=== PATIENT | male | born 1940 | race Caucasian/White ===

== ENCOUNTER 2021-02-27 10:59 | Day surgery (SDC) | payer MEDICARE ==
[2021-02-25 09:18] VITALS: BMI 28.3
[~2021-02-27 10:59] MED LIST: ALBUTEROL NEB (CONC) 2.5 MG/0.5 ML INHALATION ONE; ATROPINE SULFATE 0.4 MG/ML 1 ML VIAL IM ONE; LACTATED RINGERS 1,000 ML IV SCH; LIDOCAINE 2% (PF) 20 MG/ML 5 ML VIAL INHALATION ONE; LIDOCAINE VISCOUS 300 MG/15 ML CUP MUCOUS MEM ONE; SODIUM CHLORIDE 0.9% 1,000 ML IV SCH
--- NOTE | 2021-02-27 13:02 | CT ---
EXAMINATION TYPE: CT Chest dena Lopez Protocol DATE OF EXAM: 02/27/2021 COMPARISON: None HISTORY: Bronchial navigation CT DLP: 598 mGycm Automated exposure control for dose reduction was used. FINDINGS: Limited procedures prominent bronchial navigation procedure obtained. Spiculated mass left upper lobe measuring 1.1 cm. There is bilateral pleural-based thickening. Calcif ied subpleural nodule right lung apex. Measures 3 mm. Multiple additional sub-5 mm subpleural nodules are noted. No consolidative pneumonia. No pleural effusion. No pneumothorax. Larger 2.3 cm mass left upper lobe medial segment. No gross adenopathy by noncontrast limited technique. Tracings gynecomast ia noted. Dense atherosclerotic change of the aorta including the aortic valve. There is coronary artery calcif ication. Pericardial lipomatosis incidentally noted. Hypertrophic and degenerative change of the spin e. Incidental note made of a right thyroid nodule measuring 1.1 cm. IMPRESSION: SPICULATED NODULE MEASURING 1.1 CM LEFT UPPER LOBE. 2.4 CM LEFT UPPER LOBE MASS ALONG THE MEDIAL SVEN IN SUPRAHILAR REGION. NONSPECIFIC SUB-5 MM SUBPLEURAL NODULES DISCUSSED ABOVE. 1.1 cm right thyroid nodule
[2021-02-27] MEDS ORDERED: ROCURONIUM 10 MG/ML (5 ML VIAL) IV ONE (13:43)
[2021-02-27] MEDS ORDERED: PROPOFOL 10 MG/ML 20 ML VIAL IV ONE (13:43)
[2021-02-27] MEDS ORDERED: SUCCINYLCHOLINE CHLORIDE 100 MG/5 ML SYR IV ONE (13:43)
[2021-02-27] MEDS ORDERED: LIDOCAINE 1% INJ 10MG/ML (20 ML MDV) ONE (13:43)
[2021-02-27] MEDS ORDERED: MIDAZOLAM 2 MG/2 ML VIAL ONE (13:43)
[2021-02-27] MEDS ORDERED: NEOSTIGMINE 1 MG/ML 10 ML VIAL ONE (13:43)
[2021-02-27] MEDS ORDERED: GLYCOPYRROLATE 0.2 MG/ML 2 ML VIAL ONE (13:43)
[2021-02-27] MEDS ORDERED: fentaNYL (PF) 50 MCG/ML 2 ML AMP ONE (13:43)
[2021-02-27 14:39] VITALS: TEMP 98
[2021-02-27 14:51] VITALS: RESP 16
[2021-02-27 15:16] LABS: Appearance,BF Blood Tinged; Nucleated Cells, Body Fluid 80 /uL; RBC, Body Fluid 4840 /uL
--- NOTE | 2021-02-27 15:31 | XR ---
EXAMINATION TYPE: XR chest 1V DATE OF EXAM: 02/27/2021 HISTORY: post bronch with robby and bx left upper lobe COMPARISON: None. TECHNIQUE: Single view of the chest is submitted. FINDINGS: Demonstrated are scattered senescent parenchymal change. No evidence for a pneumothorax left lung. There is no evidence for focal infiltrate. Left suprahilar nodule identified. The heart is stable. Hilar and mediastinal structures are within normal limits. Degenerative changes are seen of the dorsal spine. IMPRESSION: 1. No evidence for a pneumothorax left lung.
[2021-02-27 15:38] LABS: Mononuclear WBC,Body Fluid 97 %; Polynuclear WBC,Body Fluid 2 %; Total Cells Counted,Body Fluid 100
[2021-02-27 16:05] VITALS: BP 137/76; PULSE 65
--- NOTE | 2021-02-27 21:03 | PCN ---
PROCEDURE NOTE PROCEDURE: Navigational bronchoscopy. OPERATORS: 1. Dr. Ramirez. 2. Dr. Shepard. There was informed consent and universal timeout. Anesthesia (Dr. Castrejon, I believe)provided general anesthesia to this patient. The procedure took place in room #1 endoscopy suite. PREOPERATIVE DIAGNOSIS: Lesion, left upper lobe. Rule out cancer. POSTOPERATIVE DIAGNOSIS: Lesion, left upper lobe. Rule out cancer. PROCEDURE DESCRIPTION: We did a navigational bronchoscopy to the left upper lobe. There was good localization. We did multiple biopsies, including transbronchial biopsies of left upper lobe and transbronchial needle aspiration to the left upper lobe. The patient tolerated those biopsies well and there was minimal bleeding. Next, we did brushes to the left upper lobe and washes to the left upper lobe as well. Again the patient tolerated this procedure well. Prior to doing any biopsies, we did a thorough evaluation of the lungs: the right upper lobe and its 3 segments, right middle lobe and its 2 segments, right lower lobe and its 5 segments, left upper lobe proper and its 2 segments, lingula and its 2 segments, and left lower lobe and its 4 segments. Everything was within normal range. There was no mass or tumor. The patient tolerated this procedure well. The patient will be recovered by Anesthesia. Once fully recovered, the patient will be discharged home. The specimens were sent to the laboratory for analysis. MMODL / IJN: [id number] /
== END 2021-02-27 16:35 | disposition home or self-care (01) ==
LOC: ORWHC2ENDO 10:59
PROVIDERS: ATTEND Internal Medicine Critical Care Medicine
DX: J98.4 Other disorders of lung (principal); R89.7 Abnormal histological findings in specimens from other organs, systems and tissues; R91.1 Solitary pulmonary nodule; Z97.2 Presence of dental prosthetic device (complete) (partial); I10 Essential (primary) hypertension; G47.33 Obstructive sleep apnea (adult) (pediatric); Z99.89 Dependence on other enabling machines and devices; M10.9 Gout, unspecified; K21.9 Gastro-esophageal reflux disease without esophagitis; Z79.899 Other long term (current) drug therapy; Z79.82 Long term (current) use of aspirin; R94.5 Abnormal results of liver function studies; E78.5 Hyperlipidemia, unspecified; R31.9 Hematuria, unspecified; E87.6 Hypokalemia
CPT/HCPCS: 31629; 87798 ×3; 87496; 87498; 87529; 88104; 88108; 88305; 88173; 89050; 88342; 87252; 87502; 87634; 88341; 87070; 87205; 87116; 87102; 87206; 71045; 71250; 31628; 31623; 31627; J2250; J0461; J2710; J2001; J3010; J0330; J2704; 31624

== ENCOUNTER → 2021-04-11 | Outpatient (CLI) | payer MEDICARE ==
[2021-04-11 16:23] LABS: Appearance,Urine Clear (Clear); Bilirubin,Urine Negative (Negative); Blood,Urine Negative (Negative); Color,Urine Yellow; Glucose,Urine (UA) Negative (Negative); Ketones,Urine Negative (Negative); Leukocyte Esterase,Urine Negative (Negative); Nitrite,Urine Negative (Negative); PH, Urine 6.5 (5.0-8.0); Protein,Urine Trace (Negative); Specific Gravity,Urine 1.015 (1.001-1.035); Urobilinogen,Urine <2.0 mg/dL (<2.0)
[2021-04-11 16:27] LABS: INR 0.9 (<1.2); Partial Thromboplastin Time 23.3 sec (22.0-30.0); Prothrombin Time 9.6 sec (9.0-12.0)
[2021-04-11 16:31] LABS: Potassium 3.6 mmol/L (3.5-5.1)
== END | disposition home or self-care (01) ==
LOC: LABPAT 15:36
PROVIDERS: ATTEND Thoracic Surgery (Cardiothoracic Vascular Surgery)
DX: Z01.812 Encounter for preprocedural laboratory examination (principal); C34.12 Malignant neoplasm of upper lobe, left bronchus or lung; I44.0 Atrioventricular block, first degree; R94.31 Abnormal electrocardiogram [ECG] [EKG]; I45.10 Unspecified right bundle-branch block; I45.2 Bifascicular block
CPT/HCPCS: 36415; 80051; 81003; 82565; 82947; 84520; 85610; 85730; 86850; 86900; 86901; 87086; 93005

== ENCOUNTER 2021-04-17 05:49 | Inpatient (IN) | payer MEDICARE ==
[2021-04-17] MEDS ORDERED: DEXAMETHASONE SOD PHOSPHATE 4 MG/ML 1 ML VIAL IV ONE (05:58)
[2021-04-17] MEDS ORDERED: MIDAZOLAM 2 MG/2 ML VIAL IV PRN (05:58)
[2021-04-17] MEDS ORDERED: ONDANSETRON 4 MG/2 ML VIAL IVP ONE (05:58)
[2021-04-17] MEDS ORDERED: HYDROmorphone 0.5 MG/0.5 ML SYRINGE IVP PRN (05:58)
[2021-04-17] MEDS ORDERED: LACTATED RINGERS 1,000 ML IV SCH (05:58)
[2021-04-17 06:56] LABS: Glucose,Whole Blood 108 mg/dL (75-99)
[2021-04-17] MEDS ORDERED: MIDAZOLAM 2 MG/2 ML VIAL IV ONE ×2 (07:03→07:15)
[2021-04-17] MEDS ORDERED: fentaNYL (PF) 50 MCG/ML 2 ML AMP IV ONE (07:03)
[2021-04-17] MEDS ORDERED: fentaNYL (PF) 50 MCG/ML 2 ML AMP ONE (07:16)
[2021-04-17] MEDS ORDERED: PHENYLEPHRINE-0.9% NACL SYG 1,000 MCG/10 ML SYRINGE ONE (07:16)
[2021-04-17] MEDS ORDERED: LIDOCAINE 1% INJ 10MG/ML (20 ML MDV) ONE (07:16)
[2021-04-17] MEDS ORDERED: GLYCOPYRROLATE 0.2 MG/ML 2 ML VIAL ONE (07:16)
[2021-04-17] MEDS ORDERED: SUCCINYLCHOLINE CHLORIDE 100 MG/5 ML SYR IV ONE (07:16)
[2021-04-17] MEDS ORDERED: ROPIVACAINE 5 MG/ML 30 ML VIAL ONE (07:16)
[2021-04-17] MEDS ORDERED: ePHEDrine SULFATE/0.9% NACL/PF 50 MG/5 ML SYRINGE IV ONE (07:16)
[2021-04-17] MEDS ORDERED: ROCURONIUM 10 MG/ML (5 ML VIAL) IV ONE (07:16)
[2021-04-17] MEDS ORDERED: PROPOFOL 10 MG/ML 20 ML VIAL IV ONE (07:16)
[2021-04-17] MEDS ORDERED: HYDROmorphone (PF) 1 MG/ML ONE (07:16)
[2021-04-17] MEDS ORDERED: NEOSTIGMINE 1 MG/ML 10 ML VIAL ONE (07:16)
[2021-04-17] MEDS ORDERED: SODIUM CHLORIDE 0.9% (PF) 10 ML VIAL ONE (07:16)
[2021-04-17 07:28] LABS: Basophils % (A) 1 %; Eosinophils # (A) 0.2 k/uL (0-0.7); Eosinophils % (A) 3 %; HCT 36.1 % (39.0-53.0); HGB 12.7 gm/dL (13.0-17.5); Lymphocytes # (A) 1.9 k/uL (1.0-4.8); Lymphocytes % (A) 33 %; MCH 32.2 pg (25.0-35.0); MCHC 35.2 g/dL (31.0-37.0); MCV 91.5 fL (80.0-100.0); Mean Platelet Volume 6.8; Monocytes # (A) 0.5 k/uL (0-1.0); Monocytes % (A) 9 %; Neutrophils % (A) 52 %; Platelet Count 194 k/uL (150-450); RBC 3.95 m/uL (4.30-5.90); RDW 13.9 % (11.5-15.5); WBC 5.8 k/uL (3.8-10.6)
[2021-04-17] MEDS ORDERED: BUPIVACAINE (PF) 0.5% 30 ML VIAL SQ ONE ×2 (08:25)
[2021-04-17] MEDS ORDERED: LACTATED RINGERS 1,000 ML IV ONE (08:53)
--- NOTE | 2021-04-17 11:32 | P.OP ---
Date of Procedure: 04/17/21 Preoperative Diagnosis: Well-differentiated neuroendocrine tumor left upper lobe Postoperative Diagnosis: Same Procedure(s) Performed: Left thoracoscopy, robotic-assisted left upper lobectomy with mediastinal lymph node dissection Implants: None Anesthesia: GREGA Surgeon: Francois Whiting Estimated Blood Loss (ml): 50 IV fluids (ml): 1,500 Urine output (ml): 300 Pathology: other (Left lower lobe; lymph node stations L5, L6, level 7, L8, L9, L 10, L 11) Condition: stable Disposition: PACU Indications for Procedure: 80-year-old male with newly discovered mass near the left hilum. Bronchoscopic biopsy was positive for well-differentiated neuroendocrine tumor. Resection was indicated. Lobectomy was required due to the location of the tumor. Robotic approach was planned. Operative Findings: Lung compliance was poor and the tissue was very soft. There was extensive anthracotic adenopathy in the hilum and mediastinum. The tumor was 2-3 cm present in the left upper lobe. Description of Procedure: Patient was brought to the operating room, placed supine on the operating room table. General anesthesia was induced and a double-lumen endotracheal tube was placed and positioned with fiberoptic bronchoscopy. No endobronchial lesions were noted. The tube was positioned and secured and the patient was turned in the right lateral decubitus position and appropriately positioned for robotic lobectomy. Left chest was sterilely prepped and draped. Initial incision was made in the eighth interspace in the anterior axillary line and the thoracoscope was placed. Once we confirmed presence of the pleural space CO2 insufflation was begun. Further robotic ports were placed and working port was placed. The fissures were incomplete. We began by dissecting the and mobilizing the inferior pulmonary ligament and continued our dissection posteriorly behind the inferior pulmonary vein. L9 and L8 lymph nodes were resected. Dissection was c arried onto the mainstem bronchus and the L 10 and 7 lymph nodes were resected. Dissection was carried up onto the pulmonary artery and the posterior branch to the posterior segment was mobilized and divided. Lymph nodes near the bifurcation of the left mainstem bronchus posteriorly were resected and sent as L 11 lymph nodes. Dissection was now carried anteriorly and the pleura resected up to the superior portion of the hilum. Superior pulmonary vein was mobilized and ligated and divided with robotic stapler. Excellent was carried onto the mainstem bronchus and the upper lobe bronchus was dissected out. Further L 11 lymph nodes were resected. The bronchus was ligated and divided with robotic stapler. Dissection was now carried onto the pulmonary artery. Regular branch of the pulmonary artery was mobilized ligated and divided with the robotic stapler. The fissure was now completed between the lingula and the lower lobe anteriorly with multiple firings of the robotic stapler. Dissection was carried onto the superior portion of the pulmonary artery and brought up on the truncus anteriorwas mobilized ligated and divided with a robotic stapler. As we dissected we discovered 2 more small branches of the pulmonary artery leading to the upper lobe and these were ligated and divided with 2 more firings of a robotic vascular stapler. Further L 11 lymph nodes were mobilized. We now completed the fissure posteriorly with multiple firings of the robotic stapler. We now dissected the L5 and 6 lymph nodes. Lobectomy specimen was placed in an Endo Catch bag. The robot was undocked and the working port incision was enlarged and the specimen was removed and examined on the back table. The chest was now filled with warm water and the hilum and staple lines were noted to be intact. There were several small punctures in the lower lobe from because the lung tissue was extremely poor and noncompliant. These were left alone. 28- Tamazight chest tube was positioned posterior apically and brought out through the anteriormost incisions. The lung was inflated under thoracoscopic visualization. Incisions were then closed with layers of Vicryl suture. They were then sealed with skin glue and dry sterile dressings were applied. The chest tube had been secured with an 0 Ethibond suture and was connected to a Pleur-evac. Patient was extubated and transferred to recovery in stable condition. Blood loss for the case was less than 50 mL.
--- NOTE | 2021-04-17 11:58 | XR ---
EXAMINATION TYPE: XR chest 1V portable DATE OF EXAM: 04/17/2021 CLINICAL HISTORY: Post left upper lobectomy. TECHNIQUE: Single AP portable upright view of the chest is obtained. COMPARISON: Chest x-ray from February 27, 2021 FINDINGS: Background chronic emphysematous and pulmonary fibrotic changes along with low lung volume s. New left-sided chest tube. Left upper lung pleural air collection with mild adjacent subcutaneous emphysema measured near 30-35%. No mediastinal shift. Left hilar opacity suspected atelectatic lung. Cardiac silhouette size stable and upper limits of normal with atherosclerotic aorta. Osseous structu res are intact. IMPRESSION: New left upper lung pleural air collection presumed product of partial pneumonectomy. No mediastinal shift. Left-sided chest tube. Left central atelectatic change. Background low lung volume s and chronic emphysematous and pulmonary fibrotic changes.
--- NOTE | 2021-04-17 13:46 | XR ---
EXAMINATION TYPE: XR chest 1V portable DATE OF EXAM: 04/17/2021 CLINICAL HISTORY: Pneumothorax progress study. TECHNIQUE: Single AP portable upright view of the chest is obtained. COMPARISON: Chest x-ray from earlier today an older studies FINDINGS: Persistent moderate-sized left upper lung pleural air collection or pneumothorax after lef t-sided partial pneumonectomy. Persistent left apical chest tube. Persistent left-sided volume loss w ith tracheal shift. Background chronic emphysematous and pulmonary fibrotic change along with low caty g volumes redemonstrated. Cardiac silhouette size stable and upper limits of normal. Atherosclerotic thoracic aorta. Left hilar opacity redemonstrated. Osseous structures are intact. IMPRESSION: Overall stable findings, moderate left apical pleural air collection or pneumothorax af ter partial pneumonectomy with left-sided chest tube.
[2021-04-17] MEDS ORDERED: IPRATROPIUM-ALBUTEROL 3 ML NEB IH PRN (13:59)
[2021-04-17] MEDS ORDERED: ONDANSETRON 4 MG/2 ML VIAL IVP PRN (13:59)
[2021-04-17] MEDS ORDERED: DEXTROSE 5%-0.45% NACL 1,000 ML IV SCH (13:59)
[2021-04-17] MEDS ORDERED: ACETAMINOPHEN TAB 325 MG TAB PO PRN (13:59)
--- NOTE | 2021-04-17 14:53 | P.CNPUL ---
History of Present Illness Consult date: 04/17/21 Reason for consult: other Chief complaint: Left upper lobe nodule, status post left thoracoscopy and lobectomy History of present illness: 80-year-old white male patient with a past medical history hypertension, hyperlipidemia, aortic valve stenosis, obstructive sleep apnea, BPH, anxiety, previous history of malignant melanoma, who was referred to Dr. Ramirez for evaluation of a left mid lung nodule/tumor. Patient was recently in the hospital for dehydration and weakness. Computed tomography scan of the chest showed a lesion in the left mid lung measuring 2.2 cm. Patient had outpatient PET scan that showed a positive uptake in this lesion but no evidence of metastatic disease. Patient carries a 24-volt-iiur smoking history. He quit smoking at the age of 53. Patient has been electromagnetic navigational br onchoscopy and biopsy of the left upper lobe lesion on 02/27/2021 and the pathology was positive for well-differentiated neuroendocrine carcinoma. He had a PFT in the office that showed FEV1 of 2.64 L or 82% of predicted, an FVC of 3.78 L or 84% of predicted, and MVV 64% of predicted. Patient was referred to Dr. Whiting for excisional surgery of the left upper lobe. Today on 04/17/2021 patient had left thoracoscopy robotic-assisted left upper lobectomy with mediastinal lymph node dissection. He seen in the postoperative period in the recovery room, he is resting comfortably on the gurney, he is still a bit drowsy, but he is answering questions appropriately, he is currently on a simple face mask, and only 2 L of oxygen, his pulse ox is 98%, he is breathing comfortably, he is in sinus mechanism, hemodynamically he stable, left-sided chest tube is in place to wall suction and there is a continuous air leak, postoperative chest x-ray has been reviewed showing new left upper lung pleural air collection, no mediastinal shift, left-sided chest tube in place, left central atelectatic change, back on the low lung volumes and chronic emphysematous and pulmonary fibrotic changes. Review of Systems All systems: negative Constitutional: Denies chills, Denies fever Eyes: denies blurred vision, denies pain Ears, nose, mouth and throat: Denies headache, Denies sore throat Cardiovascular: Denies chest pain, Denies shortness of breath Respiratory: Reports dyspnea, Denies cough Gastrointestinal: Denies abdominal pain, Denies diarrhea, Denies nausea, Denies vomiting Musculoskeletal: Denies myalgias Integumentary: Denies pruritus, Denies rash Neurological: Denies numbness, Denies weakness Psychiatric: Denies anxiety, Denies depression Endocrine: Denies fatigue, Denies weight change Past Medical History Past Medical History: GERD/Reflux, Hyperlipidemia, Hypertension, Sleep Apnea/CPAP/BIPAP Additional Past Medical History / Comment(s): HX GOUT, USES C-PAP MACHINE., STATES RECENT HOSPITALIZATION FOR WEAKNESS/DEHYDRATION AT [facility] - STATES CT SCAN SHOWED SPOT ON LEFT LUNG AND THYROID (HAD THYROID BX). HAD [employer] COVCoshared VACCINE. History of Any Multi-Drug Resistant Organisms: None Reported Past Surgical History: Bowel Resection Additional Past Surgical History / Comment(s): BRONCHOSCOPY. THYROID BX. STATES POLYP BETWEEN SMALL INTESTINE AND COLON-8 INCHES OF COLON REMOVED (PRECANCEROUS). Past Anesthesia/Blood Transfusion Reactions: No Reported Reaction Past Psychological History: Anxiety Smoking Status: Former smoker Past Alcohol Use History: Daily Additional Past Alcohol Use History / Comment(s): QUIT SMOKING 25 YEARS AGO (APPROX 1995), SMOKED <PPD. , STARTED SMOKING AGE 14. DRINKS 2-3 BEERS/DAY Past Drug Use History: None Reported - Past Family History Mother Family Medical History: No Reported History Medications and Allergies Home Medications Medication Instructions Recorded Confirmed Type Allopurinol [Zyloprim] 100 mg PO HS 02/25/21 04/11/21 History Aspirin 325 mg PO DAILY 02/25/21 04/11/21 History Atenolol [Tenormin] 50 mg PO QAM 02/25/21 04/11/21 History Losartan/Hydrochlorothiazide 1 tab PO QAM 02/25/21 04/11/21 History [Losartan-Hctz 100-12.5 mg Tab] Multivitamins, Thera [Multivitamin 1 tab PO DAILY 02/25/21 04/11/21 History (formulary)] Omeprazole 20 mg PO QAM 02/25/21 04/11/21 History Rosuvastatin [Crestor] 20 mg PO HS 02/25/21 04/11/21 History Vit C/E/Zn/Coppr/Lutein/Zeaxan 1 each PO BID 02/25/21 04/11/21 History [Preservision Areds 2 Softgel] amLODIPine BESYLATE 10 mg PO QAM 02/25/21 04/11/21 History Citalopram Hydrobromide 20 mg PO QAM 04/11/21 04/11/21 History [Citalopram HBr] Cyclobenzaprine [Flexeril] 10 mg PO QAM 04/11/21 04/11/21 History Rawlings-3 Fatty Acids/Fish Oil [Fish 1 cap PO DAILY 04/11/21 04/11/21 History Oil 1,000 mg Softgel] Potassium Chloride 10 meq PO QAM 04/11/21 04/11/21 History guanFACINE HCL [guanFACINE HCL ER] 2 mg PO HS 04/11/21 04/11/21 History Allergies Allergy/AdvReac Type Severity Reaction Status Date / Time No Known Allergies Allergy Verified 04/11/21 11:34 Physical Exam Vitals: Vital Signs Temp Pulse Pulse Resp BP BP BP 04/17/21 14:00 83 16 156/75 04/17/21 13:30 81 16 153/70 04/17/21 13:15 81 16 145/67 04/17/21 13:00 80 16 144/70 04/17/21 12:30 75 16 152/68 04/17/21 12:15 75 16 153/73 04/17/21 11:58 75 16 153/73 194/69 04/17/21 11:43 75 16 146/72 196/66 04/17/21 11:28 97.2 F L 79 100 H 150/53 180/83 04/17/21 06:39 97.2 F L 69 20 180/81 Pulse Ox 04/17/21 14:00 99 04/17/21 13:30 98 04/17/21 13:15 98 04/17/21 13:00 98 04/17/21 12:30 99 04/17/21 12:15 100 04/17/21 11:58 100 04/17/21 11:43 100 04/17/21 11:28 100 04/17/21 06:39 99 Intake and Output 04/16/21 04/17/21 04/17/21 22:59 06:59 14:59 Intake Total 300 1500 Output Total 955 Balance 300 545 Intake: IV 300 1500 Output: Urine 750 Pleural Fluid 170 Estimated Blood Loss 35 Other: Weight 94.7 kg GENERAL EXAM: Drowsy, but appropriate, easily arousable 80-year-old white male, on simple face mask, at 2 L with pulse ox of 98% comfortable in no apparent distress. HEAD: Normocephalic/atraumatic. EYES: Normal reaction of pupils, equal size. Conjunctiva pink, sclera white. NOSE: Clear with pink turbinates. THROAT: No erythema or exudates. NECK: No masses, no JVD, no thyroid enlargement, no adenopathy. CHEST: No chest wall deformity. Symmetrical expansion. Left lateral chest tube in place to wall suction, and continuous air leak, left lateral incision covered with a surgical dressing LUNGS: Equal air entry with no crackles, wheeze, rhonchi or dullness. CVS: Regular rate and rhythm, normal S1 and S2, no gallops, no murmurs, no rubs ABDOMEN: Soft, nontender. No hepatosplenomegaly, normal bowel sounds, no guarding or rigidity. EXTREMITIES: No clubbing, no edema, no cyanosis, 2+ pulses and upper and lower extremities. MUSCULOSKELETAL: Muscle strength and tone normal. SPINE: No scoliosis or deformity SKIN: No rashes CENTRAL NERVOUS SYSTEM: Alert and oriented -3. No focal deficits, tone is normal in all 4 extremities. PSYCHIATRIC: Alert and oriented -3. Appropriate affect. Intact judgment and insight. Results - Laboratory Findings CBC and BMP: 04/17/21 06:56 Abnormal lab findings: Abnormal Labs 04/17/21 04/17/21 06:38 06:56 RBC 3.95 L Hgb 12.7 L Hct 36.1 L POC Glucose (mg/dL) 108 H - Diagnostic Findings Chest x-ray: report reviewed, image reviewed Assessment and Plan Plan: Assessment: #1. Well-differentiated neuroendocrine tumor of the left upper lobe, status post left thoracoscopy and robotic-assisted left upper lobectomy and mediastinal lymph node node dissection, postoperative day #0 #2. History of hypertension #3. Patient is a former smoker, carries a [id number] smoking history, in remission for the last 20 years #4. History of hypercholesterolemia #5. GERD/reflux #6. History of obstructive sleep apnea on CPAP #7. Osteoarthritis Plan: Postoperative chest x-rays have been reviewed, and is a left apical pneumothorax, patient has a left-sided chest tube in place Patient has been evaluated along with Dr. Jain Left-sided chest tube is in place, and there is a continuous air leak, continue wall suction Follow-up chest x-ray in the morning Incentive spirometer to the bedside Antibiotics, GI and DVT prophylaxis per CT surgery Pain control Continue breathing treatments We'll continue to follow along with the CT surgery I performed a history & physical examination of the patient and discussed their management with my nurse practitioner, Jacquie Serna. I reviewed the nurse practitioner's note and agree with the documented findings and plan of care. Lung sounds are positive for diminished breath sounds. The findings and the impression was discussed with the patient. I attest to the documentation by the nurse practitioner. Time with Patient: Greater than 30
[2021-04-17] MEDS: IPRATROPIUM-ALBUTEROL 3 ML NEB IH SCH ×3 (15:05→20:20)
--- NOTE | 2021-04-17 15:22 | P.ANPRN ---
Procedure Note - Anesthesia - Nerve Block Performed Left Erector Spinae Single Time Out Performed: Yes ([id number]) Date of Procedure: 04/17/21 Procedure Start Time: 07:03 Procedure Stop Time: 07:06 Location of Patient: PreOp Indication: Acute Post-Operative Pain, Requested by Surgeon Specifically requested for management of pain by DrGuero: Francois Whiting Sedation Type: Sedate with meaningful contact maintained Preparation: Sterile Prep Position: Prone Catheter: None Needle Types: Pajunk Needle Gauge: 21 Ultrasound used to visualize needle placement: Yes Ultrasound used to observe medication spread: Yes Injectate: 0.5% Ropivacaine (see comment for volume) (30cc) Blood Aspirated: No Pain Paresthesia on Injection Noted: No Resistance on Injection: Normal Image Stored and Saved: Yes Events: Uneventful and Well Tolerated
[2021-04-17] MEDS: HEPARIN SODIUM,PORCINE/PF 5,000 UNIT/0.5 ML SYRINGE SQ SCH ×2 (15:24→22:15)
[2021-04-17] MEDS: KETOROLAC 15 MG/ML 1 ML VIAL IVP SCH ×3 (15:25→22:15)
[2021-04-17] MEDS: traMADol 50 MG TAB PO SCH ×3 (15:26→22:16)
[2021-04-17] MEDS: allopurinoL 100 MG TAB PO SCH (20:09)
[2021-04-17] MEDS: VIT A,C & E-LUTEIN-MINERALS 1 EACH TAB PO SCH (20:09)
[2021-04-17] MEDS: ATORVASTATIN 40 MG TAB PO SCH (20:09)
[2021-04-17] MEDS ORDERED: GUANFACINE HCL 2 MG PO SCH (21:00)
[2021-04-18] MEDS: PANTOPRAZOLE 40 MG TABLET PO SCH (05:24)
[2021-04-18] MEDS: KETOROLAC 15 MG/ML 1 ML VIAL IVP SCH ×4 (05:24→23:42)
[2021-04-18] MEDS: traMADol 50 MG TAB PO SCH ×4 (05:24→23:40)
--- NOTE | 2021-04-18 07:42 | XR ---
EXAMINATION TYPE: XR chest 1V DATE OF EXAM: 04/18/2021 CLINICAL HISTORY: Pneumothorax progress study. TECHNIQUE: Single AP portable upright view of the chest is obtained. COMPARISON: Chest x-ray from 04/17/2021 FINDINGS: Low lung volumes. Persistent moderate left upper lung pneumothorax after left partial pneum onectomy, similar to slightly decreased. Persistent left apical chest tube. Background chronic emphys ematous and pulmonary fibrosis along with low lung volumes. Heart size is mildly enlarged, stable. At herosclerotic thoracic aorta. Left hilar opacity again visualized. Osseous structures are intact. IMPRESSION: 1. Moderate left upper lung pneumothorax after left partial pneumonectomy is similar to slightly decr eased since prior exam. Left apical chest tube is again visualized.
[2021-04-18 07:54] LABS: Calcium 8.7 mg/dL (8.4-10.2)
[2021-04-18 07:56] LABS: Basophils % (A) 0 %; Eosinophils % (A) 0 %; HCT 37.9 % (39.0-53.0); HGB 12.2 gm/dL (13.0-17.5); Lymphocytes # (A) 1.2 k/uL (1.0-4.8); Lymphocytes % (A) 15 %; MCH 30.7 pg (25.0-35.0); MCHC 32.3 g/dL (31.0-37.0); Mean Platelet Volume 6.8; Monocytes # (A) 0.4 k/uL (0-1.0); Monocytes % (A) 5 %; Neutrophils # (A) 6.2 k/uL (1.3-7.7); Neutrophils % (A) 80 %; Platelet Count 188 k/uL (150-450); RBC 3.99 m/uL (4.30-5.90); RDW 14.5 % (11.5-15.5); WBC 7.8 k/uL (3.8-10.6)
[2021-04-18 08:00] LABS: Potassium 2.7 mmol/L (3.5-5.1)
[2021-04-18] MEDS: amLODIPine 10 MG TAB PO SCH (08:33)
[2021-04-18] MEDS: POTASSIUM CHLORIDE ER 20 MEQ TAB.ER PO SCH ×2 (08:33→20:29)
[2021-04-18] MEDS: CITALOPRAM HYDROBROMIDE 20 MG TAB PO SCH (08:33)
[2021-04-18] MEDS: atenoloL 50 MG TAB PO SCH (08:33)
[2021-04-18] MEDS: HEPARIN SODIUM,PORCINE/PF 5,000 UNIT/0.5 ML SYRINGE SQ SCH ×3 (08:33→23:41)
[2021-04-18] MEDS: MULTIVITAMINS, THERA 1 EACH TAB PO SCH (08:34)
[2021-04-18] MEDS: CYCLOBENZAPRINE 10 MG TAB PO SCH (08:34)
[2021-04-18] MEDS: LOSARTAN 50 MG TAB PO SCH (08:34)
[2021-04-18] MEDS: hydroCHLOROthiazide 12.5 MG CAP PO SCH (08:34)
[2021-04-18] MEDS: ASPIRIN 325 MG TAB PO SCH (08:34)
[2021-04-18] MEDS: VIT A,C & E-LUTEIN-MINERALS 1 EACH TAB PO SCH ×2 (08:35→20:29)
[2021-04-18] MEDS: IPRATROPIUM-ALBUTEROL 3 ML NEB IH SCH ×4 (08:52→20:00)
[2021-04-18] MEDS ORDERED: POTASSIUM CHLORIDE ER 10 MEQ TAB.ER.PRT PO SCH (09:00)
[2021-04-18] MEDS ORDERED: NON FORMULARY DRUG (Losartan/Hydrochlorothiazide [Losartan-Hctz 100-12.5 Mg Tab] 1 EACH Ta PO SCH (09:00)
[2021-04-18] MEDS: ACETYLCYSTEINE 800 MG/4 ML VIAL INHALATION SCH ×3 (11:48→20:01)
--- NOTE | 2021-04-18 13:29 | P.PN ---
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 Previous medical history of previous tobacco dependence, obstructive sleep apnea on home CPAP, hypertension, hyperlipidemia, GERD, osteoarthritis POD #1 left thoracoscopy, robotic-assisted left upper lobectomy with mediastinal lymph node dissection The patient is currently sitting up in a recliner in the cardiac stepdown unit in no acute distress. States pain is well controlled on current medication regimen, denies shortness of breath. Remains in sinus rhythm and hemodynamically stable. Left pleural chest tube present to continuous wall suction, continuous air leak present. Patient is actively using incentive spirometer and achieving 1000 mL. He had a relatively uneventful night and has no new complaints. Objective - Vital Signs Vital signs: Vital Signs Temp 97.8 F 04/18/21 12:35 Pulse 88 04/18/21 12:35 Resp 18 04/18/21 12:35 BP 129/95 04/18/21 12:35 Pulse Ox 95 04/18/21 12:35 Intake & Output 04/17/21 04/18/21 04/18/21 18:59 06:59 18:59 Intake Total 1500 600 354 Output Total 955 1900 Balance 545 -1300 354 Weight 93.2 kg Intake: IV 1500 Intake, IV Titration 600 Amount Dextrose 5%-0.45% NaCl 1, 450 000 ml @ 50 mls/hr IV . Q20H [facility] Rx#:[id number] ceFAZolin 2 gm In Sodium 100 Chloride 0.9% 50 ml @ 100 mls/hr IVPB ONCE PRN Rx# :[id number] ceFAZolin 2 gm In Sodium 50 Chloride 0.9% 50 ml @ 100 mls/hr IVPB Q8HR [facility] Rx# :[id number] Oral 354 Output: Chest Tube Drainage 500 Chest Tube Left Upper 500 Anterior Chest Drainage 200 Chest 200 Urine 750 1200 Uretheral (Mejia) 300 Pleural Fluid 170 Estimated Blood Loss 35 Other: Voiding Method Indwelling Catheter Indwelling Catheter Toilet - Exam CONSTITUTIONAL: Appears comfortable, cooperative, no acute distress RESPIRATORY: Lungs sounds diminished bilaterally. Respirations even, nonlabored. Currently on room air with oxygen saturation 95%. Able to achieve 1000 mL on incentive spirometry. Strong cough. CARDIOVASCULAR: S1, S2 present. Regular rate and rhythm, sinus rhythm on telemetry. Palpable peripheral pulses bilaterally. No edema present. No calf pain or tenderness noted. SCDs present. GASTROINTESTINAL: Abdomen soft, nontender, nondistended. Active bowel sounds present 4 quadrants. Tolerating diet. GENITOURINARY: Continues to void clear, yellow urine INTEGUMENTARY: Skin is warm and dry with evidence of good perfusion. Thoracic incisions well approximated and covered with dry intact dressing. NEUROLOGIC: Cranial nerves II through XII intact MUSKULOSKELETAL: Able to move all extremities, strength equal bilaterally, gait normal PSYCHIATRIC: Alert and oriented to person place and time, appropriate affect, intact judgment and insight INVASIVE LINES AND TUBES: Left pleural chest tube present and connected to wall suction, continuous air leak present, 375 mL serosanguineous drainage overnight, 1030 mL since surgery. - Allied health notes Allied health notes reviewed: nursing - Labs CBC & Chem 7: 04/18/21 06:55 04/18/21 06:55 Labs: Abnormal Lab Results - Last 24 Hours (Table) 04/18/21 04/18/21 Range/Units 06:55 06:55 RBC 3.99 L (4.30-5.90) m/uL Hgb 12.2 L (13.0-17.5) gm/dL Hct 37.9 L (39.0-53.0) % Potassium 2.7 L* (3.5-5.1) mmol/L Chloride 96 L (98-107) mmol/L Carbon Dioxide 34 H (22-30) mmol/L Glucose 117 H (74-99) mg/dL - Imaging and Cardiology Chest x-ray: report reviewed, image reviewed Assessment and Plan Assessment: 1. 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 Continuous air leak 3. Previous tobacco dependence 4. Obstructive sleep apnea on home CPAP 5. Hypertension 6. Hyperlipidemia 7. GERD 8. Osteoarthritis Plan: 1. Will continue to monitor chest tube for resolution of air leak 2. Encourage incentive spirometry 10 times every hour while awake 3. Bronchodilators per pulmonology 4. Will monitor daily x-rays 5. Pain control with current medication regimen 6. Increase activity, ambulate as tolerated. May take off suction for short. The time for induration in the hallway 7. GI/DVT prophylaxis 8. More recommendations to follow Time with Patient: Greater than 30
--- NOTE | 2021-04-18 14:10 | P.PN ---
Subjective Progress Note Date: 04/18/21 80-year-old white male patient with a past medical history hypertension, hyperl ipidemia, aortic valve stenosis, obstructive sleep apnea, BPH, anxiety, previous history of malignant melanoma, who was referred to Dr. Ramirez for evaluation of a left mid lung nodule/tumor. Patient was recently in the hospital for dehydration and weakness. Computed tomography scan of the chest showed a lesion in the left mid lung measuring 2.2 cm. Patient had outpatient PET scan that showed a positive uptake in this lesion but no evidence of metastatic disease. Patient carries a 60-[id number]-fxrm smoking history. He quit smoking at the age of 53. 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 He had a PFT in the office that showed FEV1 of 2.64 L or 82% of predicted, an FVC of 3.78 L or 84% of predicted, and MVV 64% of predicted. Patient was referred to Dr. Whiting for excisional surgery of the left upper lobe. Today on 04/17/2021 patient had left thoracoscopy robotic-assisted left upper lobectomy with mediastinal lymph node dissection. He seen in the postoperative period in the recovery room, he is resting comfortably on the gurney, he is still a bit drowsy, but he is answering questions appropriately, he is currently on a simple face mask, and only 2 L of oxygen, his pulse ox is 98%, he is breathing comfortably, he is in sinus mechanism, hemodynamically he stable, left-sided chest tube is in place to wall suction and there is a continuous air leak, postoperative chest x-ray has been reviewed showing new left upper lung pleural air collection, no mediastinal shift, left-sided chest tube in place, left central atelectatic change, back on the low lung volumes and chronic emphysematous and pulmonary fibrotic changes. On today's evaluation of 04/18/2021 the patient is postop day #1. He underwent a left upper lobe resection. The patient continues to have a loculated pneumothorax in the left upper lobe on today's chest x-ray. Chest tube is in a good location with the left hemithorax and there is continuous air leak and wall suction his to being applied. He is using incentive spirometer. His bowling approximately thousand. His pain is under adequate control. No worsening shortness of breath and no subcutaneous emphysema. No chest pain. No pleurisy. No hemoptysis. No other significant events overnight. His potassium came down at 2.7 and is being replaced. Creatinine is at 1.1. Sodium is 137. The pat ient has a white cell count of 7.8 patient medication of been all resumed. On a separate note, the patient has not urinated since yesterday. The Mejia catheter removed. We'll proceed with a bladder scan. Objective - Vital Signs Vital signs: Vital Signs Temp 97.8 F 04/18/21 12:35 Pulse 88 04/18/21 12:35 Resp 18 04/18/21 12:35 BP 129/95 04/18/21 12:35 Pulse Ox 95 04/18/21 12:35 Intake & Output 04/17/21 04/18/21 04/18/21 18:59 06:59 18:59 Intake Total 1500 600 354 Output Total 955 1900 60 Balance 545 -1300 294 Weight 93.2 kg Intake: IV 1500 Intake, IV Titration 600 Amount Dextrose 5%-0.45% NaCl 1, 450 000 ml @ 50 mls/hr IV . Q20H [facility] Rx#:[id number] ceFAZolin 2 gm In Sodium 100 Chloride 0.9% 50 ml @ 100 mls/hr IVPB ONCE PRN Rx# :[id number] ceFAZolin 2 gm In Sodium 50 Chloride 0.9% 50 ml @ 100 mls/hr IVPB Q8HR [facility] Rx# :[id number] Oral 354 Output: Chest Tube Drainage 500 60 Chest Tube Left Upper 500 60 Anterior Chest Drainage 200 Chest 200 Urine 750 1200 Uretheral (Mejia) 300 Pleural Fluid 170 Estimated Blood Loss 35 Other: Voiding Method Indwelling Catheter Indwelling Catheter Toilet - Exam CONSTITUTIONAL: Appears comfortable, cooperative, no acute distress RESPIRATORY: Lungs sounds diminished bilaterally. Respirations even, nonlabored. Currently on room air with oxygen saturation 95%. Able to achieve 1000 mL on incentive spirometry. Strong cough. CARDIOVASCULAR: S1, S2 present. Regular rate and rhythm, sinus rhythm on telemetry. Palpable peripheral pulses bilaterally. No edema present. No calf pain or tenderness noted. SCDs present. GASTROINTESTINAL: Abdomen soft, nontender, nondistended. Active bowel sounds present 4 quadrants. Tolerating diet. GENITOURINARY: Continues to void clear, yellow urine INTEGUMENTARY: Skin is warm and dry with evidence of good perfusion. Thoracic incisions well approximated and covered with dry intact dressing. NEUROLOGIC: Cranial nerves II through XII intact MUSKULOSKELETAL: Able to move all extremities, strength equal bilaterally, gait normal PSYCHIATRIC: Alert and oriented to person place and time, appropriate affect, intact judgment and insight INVASIVE LINES AND TUBES: Left pleural chest tube present and connected to wall suction, continuous air leak present, 375 mL serosanguineous drainage overnight, 1030 mL since surgery. - Labs CBC & Chem 7: 04/18/21 06:55 04/18/21 06:55 Labs: Abnormal Lab Results - Last 24 Hours (Table) 04/18/21 04/18/21 Range/Units 06:55 06:55 RBC 3.99 L (4.30-5.90) m/uL Hgb 12.2 L (13.0-17.5) gm/dL Hct 37.9 L (39.0-53.0) % Potassium 2.7 L* (3.5-5.1) mmol/L Chloride 96 L (98-107) mmol/L Carbon Dioxide 34 H (22-30) mmol/L Glucose 117 H (74-99) mg/dL Assessment and Plan Plan: #1. Well-differentiated neuroendocrine tumor of the left upper lobe, status post left thoracoscopy and robotic-assisted left upper lobectomy and mediastinal lymph node node dissection, postoperative day #1. The patient continues to have a loculated pneumothorax and left upper lobe. There is persistent air leak and the chest was kept in place and will be applied to wall suction. Output from th e chest tube is minimal in terms of fluid. This persisted there leak. Hemodynamically stable. #2. History of hypertension #3. Patient is a former smoker, carries a 81-nrqt-roha smoking history, in remission for the last 20 years #4. History of hypercholesterolemia #5. GERD/reflux #6. History of obstructive sleep apnea on CPAP #7. Osteoarthritis Plan Keep the right-sided left-sided chest tube in place and keep the chest tube to Wall suction Daily chest x-rays Pain control Incentive spirometer We'll continue to follow Proceed with a bladder scan
[2021-04-18] MEDS: ATORVASTATIN 40 MG TAB PO SCH (20:29)
[2021-04-18] MEDS: allopurinoL 100 MG TAB PO SCH (20:29)
[2021-04-19] MEDS: traMADol 50 MG TAB PO SCH ×4 (06:27→23:53)
[2021-04-19] MEDS: PANTOPRAZOLE 40 MG TABLET PO SCH (06:27)
[2021-04-19] MEDS: KETOROLAC 15 MG/ML 1 ML VIAL IVP SCH ×4 (06:27→23:53)
[2021-04-19] MEDS: ACETYLCYSTEINE 800 MG/4 ML VIAL INHALATION SCH ×4 (07:52→19:18)
[2021-04-19] MEDS: IPRATROPIUM-ALBUTEROL 3 ML NEB IH SCH ×4 (07:52→19:18)
--- NOTE | 2021-04-19 07:58 | XR ---
EXAMINATION TYPE: XR chest 1V portable DATE OF EXAM: 04/19/2021 COMPARISON: Chest x-ray 04/18/2021 HISTORY: Chest tube, pneumothorax TECHNIQUE: Single frontal view of the chest is obtained. FINDINGS: Right lung shows a stable appearance. Patient is rotated. Left-sided chest tube is in plac e. The left-sided pneumothorax is improved. Aorta is dense. Abnormal density in the left upper lobe p erihilar location again noted. There are overlying leads. Heart is likely stable. IMPRESSION: Improvement in left pneumothorax.
[2021-04-19 08:12] LABS: Calcium 8.8 mg/dL (8.4-10.2); Potassium 3.3 mmol/L (3.5-5.1)
[2021-04-19 08:14] LABS: HGB 11.2 gm/dL (13.0-17.5); MCH 32.4 pg (25.0-35.0); MCHC 35.1 g/dL (31.0-37.0); MCV 92.2 fL (80.0-100.0); Mean Platelet Volume 6.9; Platelet Count 175 k/uL (150-450); RBC 3.47 m/uL (4.30-5.90); RDW 13.8 % (11.5-15.5); WBC 7.7 k/uL (3.8-10.6)
[2021-04-19] MEDS: CYCLOBENZAPRINE 10 MG TAB PO SCH (08:28)
[2021-04-19] MEDS: hydroCHLOROthiazide 12.5 MG CAP PO SCH (08:28)
[2021-04-19] MEDS: LOSARTAN 50 MG TAB PO SCH (08:28)
[2021-04-19] MEDS: CITALOPRAM HYDROBROMIDE 20 MG TAB PO SCH (08:29)
[2021-04-19] MEDS: amLODIPine 10 MG TAB PO SCH (08:29)
[2021-04-19] MEDS: ASPIRIN 325 MG TAB PO SCH (08:29)
[2021-04-19] MEDS: MULTIVITAMINS, THERA 1 EACH TAB PO SCH (08:29)
[2021-04-19] MEDS: atenoloL 50 MG TAB PO SCH (08:29)
[2021-04-19] MEDS: POTASSIUM CHLORIDE ER 20 MEQ TAB.ER PO SCH ×2 (08:29→19:46)
[2021-04-19] MEDS: HEPARIN SODIUM,PORCINE/PF 5,000 UNIT/0.5 ML SYRINGE SQ SCH ×3 (08:29→23:53)
[2021-04-19] MEDS: VIT A,C & E-LUTEIN-MINERALS 1 EACH TAB PO SCH ×2 (08:29→19:46)
[2021-04-19] MEDS ORDERED: TAMSULOSIN 0.4 MG CAP.ER.24H PO STA (08:52)
--- NOTE | 2021-04-19 09:15 | P.PN ---
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 Previous medical history of previous tobacco dependence, obstructive sleep apnea on home CPAP, hypertension, hyperlipidemia, GERD, osteoarthritis POD #2 left thoracoscopy, robotic-assisted left upper lobectomy with mediastinal lymph node dissection Postoperative acute urinary retention, unexpected The patient is currently sitting up in a recliner in the cardiac stepdown unit in no acute distress. States pain is well controlled on current medication regimen, denies shortness of breath. Remains in sinus rhythm and hemodynamically stable. Left pleural chest tube present to continuous wall suction, air leak present with expiration, less than yesterday. Patient is actively using incentive spirometer and achieving 1500 mL. He had urinary retention yesterday requiring straight catheterization 4, cisneros catheter reinserted Objective - Vital Signs Vital signs: Vital Signs Temp 97.3 F L 04/19/21 08:14 Pulse 80 04/19/21 08:14 Resp 18 04/19/21 08:14 BP 154/74 04/19/21 08:14 Pulse Ox 91 L 04/19/21 08:14 Intake & Output 04/18/21 04/19/21 04/19/21 18:59 06:59 18:59 Intake Total 794 Output Total 560 1850 400 Balance 234 -1850 -400 Weight 93.1 kg Intake: Intake, IV Titration 0 Amount Dextrose 5%-0.45% NaCl 1, 0 000 ml @ 50 mls/hr IV . Q20H [facility] Rx#:[id number] Oral 794 Output: Chest Tube Drainage 60 150 Chest Tube Left Upper 60 150 Anterior Chest Urine 500 1700 400 Straight 600 Uretheral (Cisneros) 500 400 Post Void Residual 0 Other: Voiding Method Toilet Toilet Indwelling Catheter - Exam CONSTITUTIONAL: Appears comfortable, cooperative, no acute distress RESPIRATORY: Lungs sounds diminished bilaterally. Respirations even, nonlabored. Currently on room air with oxygen saturation 100%. Able to achieve 1500 mL on incentive spirometry. Strong cough. CARDIOVASCULAR: S1, S2 present. Regular rate and rhythm, sinus rhythm on telemetry. Palpable peripheral pulses bilaterally. No edema present. No calf pain or tenderness noted. SCDs present. GASTROINTESTINAL: Abdomen soft, nontender, nondistended. Active bowel sounds present 4 quadrants. Tolerating diet. GENITOURINARY: Cisneros present draining clear, yellow urine INTEGUMENTARY: Skin is warm and dry with evidence of good perfusion. Thoracic incisions well approximated and covered with dry intact dressing. NEUROLOGIC: Cranial nerves II through XII intact MUSKULOSKELETAL: Able to move all extremities, strength equal bilaterally, gait normal PSYCHIATRIC: Alert and oriented to person place and time, appropriate affect, intact judgment and insight INVASIVE LINES AND TUBES: Left pleural chest tube present and connected to wall suction, air leak present on expiration, 150 mL serosanguineous drainage overnight, 350 mL in the last 24 hours. - Allied health notes Allied health notes reviewed: nursing - Labs CBC & Chem 7: 04/19/21 07:35 04/19/21 07:35 Labs: Abnormal Lab Results - Last 24 Hours (Table) 04/19/21 04/19/21 Range/Units 07:35 07:35 RBC 3.47 L (4.30-5.90) m/uL Hgb 11.2 L (13.0-17.5) gm/dL Hct 32.0 L (39.0-53.0) % Sodium 135 L (137-145) mmol/L Potassium 3.3 L (3.5-5.1) mmol/L Chloride 95 L (98-107) mmol/L Carbon Dioxide 33 H (22-30) mmol/L Creatinine 1.28 H (0.66-1.25) mg/dL Glucose 110 H (74-99) mg/dL - Imaging and Cardiology Chest x-ray: report reviewed, image reviewed Assessment and Plan Assessment: 1. 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 Continuous air leak 3. Previous tobacco dependence 4. Obstructive sleep apnea on home CPAP 5. Hypertension 6. Hyperlipidemia 7. GERD 8. Osteoarthritis 9. Postoperative acute urinary retention Plan: 1. Will continue to monitor chest tube for resolution of air leak 2. Encourage incentive spirometry 10 times every hour while awake 3. Bronchodilators per pulmonology 4. Will monitor daily x-rays 5. Pain control with current medication regimen 6. Increase activity, ambulate as tolerated. May take off suction for short time for ambulation in the hallway. Must be out of bed for all meals 7. GI/DVT prophylaxis 8. Flomax started. UA ordered. Consultation placed for urology, appreciate recommendations 9. More recommendations to follow Time with Patient: Greater than 30
--- NOTE | 2021-04-19 11:06 | P.PN ---
Subjective Progress Note Date: 04/19/21 80-year-old white male patient with a past medical history hypertension, hyperl ipidemia, aortic valve stenosis, obstructive sleep apnea, BPH, anxiety, previous history of malignant melanoma, who was referred to Dr. Ramirez for evaluation of a left mid lung nodule/tumor. Patient was recently in the hospital for dehydration and weakness. Computed tomography scan of the chest showed a lesion in the left mid lung measuring 2.2 cm. Patient had outpatient PET scan that showed a positive uptake in this lesion but no evidence of metastatic disease. Patient carries a [id number]-kvsm smoking history. He quit smoking at the age of 53. 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 He had a PFT in the office that showed FEV1 of 2.64 L or 82% of predicted, an FVC of 3.78 L or 84% of predicted, and MVV 64% of predicted. Patient was referred to Dr. Whiting for excisional surgery of the left upper lobe. Today on 04/17/2021 patient had left thoracoscopy robotic-assisted left upper lobectomy with mediastinal lymph node dissection. He seen in the postoperative period in the recovery room, he is resting comfortably on the gurney, he is still a bit drowsy, but he is answering questions appropriately, he is currently on a simple face mask, and only 2 L of oxygen, his pulse ox is 98%, he is breathing comfortably, he is in sinus mechanism, hemodynamically he stable, left-sided chest tube is in place to wall suction and there is a continuous air leak, postoperative chest x-ray has been reviewed showing new left upper lung pleural air collection, no mediastinal shift, left-sided chest tube in place, left central atelectatic change, back on the low lung volumes and chronic emphysematous and pulmonary fibrotic changes. On today's evaluation of 04/18/2021 the patient is postop day #1. He underwent a left upper lobe resection. The patient continues to have a loculated pneumothorax in the left upper lobe on today's chest x-ray. Chest tube is in a good location with the left hemithorax and there is continuous air leak and wall suction his to being applied. He is using incentive spirometer. His bowling approximately thousand. His pain is under adequate control. No worsening shortness of breath and no subcutaneous emphysema. No chest pain. No pleurisy. No hemoptysis. No other significant events overnight. His potassium came down at 2.7 and is being replaced. Creatinine is at 1.1. Sodium is 137. The pat ient has a white cell count of 7.8 patient medication of been all resumed. On a separate note, the patient has not urinated since yesterday. The Mejia catheter removed. We'll proceed with a bladder scan. 04/19/2021, the patient is on room air oxygen. Chest x-ray showing some diminution of the left-sided pneumothorax and it is obviously smaller in size. The chest tube is in good location. There is positive air leak. Clinically doing well. No specific complaints. He is currently pulse oxing 91% room air oxygen. Hemodynamically stable. He has adequate pain control. Using incentive spirometer. Hemoglobin is at 11.2. Electrolytes are normal with a normal sodium of 135, potassium is 3.3 and his been replaced, is having urinary retention and a Mejia catheter was reinserted. He was given Flomax. Objective - Vital Signs Vital signs: Vital Signs Temp 97.3 F L 04/19/21 08:14 Pulse 80 04/19/21 08:14 Resp 18 04/19/21 08:14 BP 154/74 04/19/21 08:14 Pulse Ox 91 L 04/19/21 08:14 Intake & Output 04/18/21 04/19/21 04/19/21 18:59 06:59 18:59 Intake Total 794 560 Output Total 560 1850 400 Balance 234 -1850 160 Weight 93.1 kg Intake: Intake, IV Titration 0 Amount Dextrose 5%-0.45% NaCl 1, 0 000 ml @ 50 mls/hr IV . Q20H [facility] Rx#:[id number] Oral 794 560 Output: Chest Tube Drainage 60 150 Chest Tube Left Upper 60 150 Anterior Chest Urine 500 1700 400 Straight 600 Uretheral (Mejia) 500 400 Post Void Residual 0 Other: Voiding Method Toilet Toilet Indwelling Catheter - Exam CONSTITUTIONAL: Appears comfortable, cooperative, no acute distress RESPIRATORY: Lungs sounds diminished bilaterally. Respirations even, nonlabored. Currently on room air with oxygen saturation 95%. Able to achieve 1500 mL on incentive spirometry. Strong cough. CARDIOVASCULAR: S1, S2 present. Regular rate and rhythm, sinus rhythm on telemetry. Palpable peripheral pulses bilaterally. No edema present. No calf pain or tenderness noted. SCDs present. GASTROINTESTINAL: Abdomen soft, nontender, nondistended. Active bowel sounds present 4 quadrants. Tolerating diet. GENITOURINARY: Continues to void clear, yellow urine INTEGUMENTARY: Skin is warm and dry with evidence of good perfusion. Thoracic incisions well approximated and covered with dry intact dressing. NEUROLOGIC: Cranial nerves II through XII intact MUSKULOSKELETAL: Able to move all extremities, strength equal bilaterally, gait normal PSYCHIATRIC: Alert and oriented to person place and time, appropriate affect, intact judgment and insight INVASIVE LINES AND TUBES: Left pleural chest tube present and connected to wall suction, continuous air leak present, output is minimal and his doing 1500 on his incentive spirometer. - Labs CBC & Chem 7: 04/19/21 07:35 04/19/21 07:35 Labs: Abnormal Lab Results - Last 24 Hours (Table) 04/19/21 04/19/21 Range/Units 07:35 07:35 RBC 3.47 L (4.30-5.90) m/uL Hgb 11.2 L (13.0-17.5) gm/dL Hct 32.0 L (39.0-53.0) % Sodium 135 L (137-145) mmol/L Potassium 3.3 L (3.5-5.1) mmol/L Chloride 95 L (98-107) mmol/L Carbon Dioxide 33 H (22-30) mmol/L Creatinine 1.28 H (0.66-1.25) mg/dL Glucose 110 H (74-99) mg/dL Assessment and Plan Plan: #1. Well-differentiated neuroendocrine tumor of the left upper lobe, status post left thoracoscopy and robotic-assisted left upper lobectomy and mediastinal lymph node node dissection, postoperative day #2. The patient continues to have a loculated pneumothorax and left upper lobe. There is persistent air leak and the chest was kept in place and will be applied to wall suction. Output from the chest tube is minimal in terms of fluid. This persisted there leak. Nevertheless, the amount of leak is improved compared to yesterday and the patient's follow-up chest x-ray showing the minor motion of the left apical pne umothorax and the patient is hemodynamically stable on room air oxygen. Using incentive spirometer, pulling approximately 1500 #2. History of hypertension #3. Patient is a former smoker, carries a 81-[id number]-yser smoking history, in remission for the last 20 years #4. History of hypercholesterolemia #5. GERD/reflux #6. History of obstructive sleep apnea on CPAP #7. Osteoarthritis #8 urinary retention and a Mejia cath is in place Plan Keep the right-sided left-sided chest tube in place and keep the chest tube to Wall suction Daily chest x-rays Pain control Incentive spirometer We'll continue to follow Proceed with a bladder scan keep the Mejia catheter in place and urology consu ltations been obtained and the patient will be kept on Flomax. We'll continue to follow.
--- NOTE | 2021-04-19 11:21 | P.GSCN ---
History of Present Illness Consult date: 04/19/21 Reason for Consult: Urinary retention History of present illness: This is an 80-year-old male POD #2 S/P left thoracoscopy, robotic-assisted left upper lobectomy with mediastinal lymph node dissection. Urology is consultative for urinary retention. His developed urinary retention postoperatively, PVR between 400-600 mL, has required straight cath 4. He indicated at baseline he does have some difficulty voiding, with a fair stream and urgency. No previous history of gross hematuria, or urinary retention. Denies any family history of prostate cancer. A Mejia catheter is in place currently draining clear yellow urine Review of Systems - Constitutional Denies fever, Denies weight loss - Cardiovascular Denies chest pain, Denies shortness of breath - Respiratory Denies cough, Denies 7 - Gastrointestinal Reports as per HPI - Genitourinary Reports urinary retention, Denies dysuria, Denies flank pain, Denies hematuria - Neurological Denies headaches, Denies syncope Past Medical History Past Medical History: GERD/Reflux, Hyperlipidemia, Hypertension, Sleep Apnea/CPAP/BIPAP Additional Past Medical History / Comment(s): HX GOUT, USES C-PAP MACHINE., STATES RECENT HOSPITALIZATION FOR WEAKNESS/DEHYDRATION AT [facility] - STATES CT SCAN SHOWED SPOT ON LEFT LUNG AND THYROID (HAD THYROID BX). HAD [employer] VACCINE. History of Any Multi-Drug Resistant Organisms: None Reported Past Surgical History: Bowel Resection Additional Past Surgical History / Comment(s): BRONCHOSCOPY. THYROID BX. STATES POLYP BETWEEN SMALL INTESTINE AND COLON-8 INCHES OF COLON REMOVED (PRECANCEROUS). Past Anesthesia/Blood Transfusion Reactions: No Reported Reaction Past Psychological History: Anxiety Smoking Status: Former smoker Past Alcohol Use History: Daily Additional Past Alcohol Use History / Comment(s): QUIT SMOKING 25 YEARS AGO (APPROX 1995), SMOKED <PPD. , STARTED SMOKING AGE 14. DRINKS 2-3 BEERS/DAY Past Drug Use History: None Reported - Past Family History Mother Family Medical History: No Reported History Medications and Allergies Home Medications Medication Instructions Recorded Confirmed Type Allopurinol [Zyloprim] 100 mg PO HS 02/25/21 04/11/21 History Aspirin 325 mg PO DAILY 02/25/21 04/11/21 History Atenolol [Tenormin] 50 mg PO QAM 02/25/21 04/11/21 History Losartan/Hydrochlorothiazide 1 tab PO QAM 02/25/21 04/11/21 History [Losartan-Hctz 100-12.5 mg Tab] Multivitamins, Thera [Multivitamin 1 tab PO DAILY 02/25/21 04/11/21 History (formulary)] Omeprazole 20 mg PO QAM 02/25/21 04/11/21 History Rosuvastatin [Crestor] 20 mg PO HS 02/25/21 04/11/21 History Vit C/E/Zn/Coppr/Lutein/Zeaxan 1 each PO BID 02/25/21 04/11/21 History [Preservision Areds 2 Softgel] amLODIPine BESYLATE 10 mg PO QAM 02/25/21 04/11/21 History Citalopram Hydrobromide 20 mg PO QAM 04/11/21 04/11/21 History [Citalopram HBr] Cyclobenzaprine [Flexeril] 10 mg PO QAM 04/11/21 04/11/21 History [place]-3 Fatty Acids/Fish Oil [Fish 1 cap PO DAILY 04/11/21 04/11/21 History Oil 1,000 mg Softgel] Potassium Chloride 10 meq PO QAM 04/11/21 04/11/21 History guanFACINE HCL [guanFACINE HCL ER] 2 mg PO HS 04/11/21 04/11/21 History Allergies Allergy/AdvReac Type Severity Reaction Status Date / Time No Known Allergies Allergy Verified 04/11/21 11:34 Surgical - Exam Vital Signs Temp Pulse Resp BP Pulse Ox 97.2 F L 69 20 180/81 99 04/17/21 06:39 04/17/21 06:39 04/17/21 06:39 04/17/21 06:39 04/17/21 06:39 - General well developed, well nourished, no distress, no pain - Eyes PERRL, normal ocular movement - ENT normal nares, normal mucosa - Respiratory normal expansion, normal respiratory effort - Abdomen Abdomen: soft, non tender - Psychiatric oriented to time, oriented to person, oriented to place, speech is normal Results - Labs 04/19/21 07:35 04/19/21 07:35 Abnormal Lab Results - Last 24 Hours (Table) 04/19/21 04/19/21 Range/Units 07:35 07:35 RBC 3.47 L (4.30-5.90) m/uL Hgb 11.2 L (13.0-17.5) gm/dL Hct 32.0 L (39.0-53.0) % Sodium 135 L (137-145) mmol/L Potassium 3.3 L (3.5-5.1) mmol/L Chloride 95 L (98-107) mmol/L Carbon Dioxide 33 H (22-30) mmol/L Creatinine 1.28 H (0.66-1.25) mg/dL Glucose 110 H (74-99) mg/dL Diabetes panel 04/19/21 Range/Units 07:35 Sodium 135 L (137-145) mmol/L Potassium 3.3 L (3.5-5.1) mmol/L Chloride 95 L (98-107) mmol/L Carbon Dioxide 33 H (22-30) mmol/L BUN 15 (9-20) mg/dL Creatinine 1.28 H (0.66-1.25) mg/dL Glucose 110 H (74-99) mg/dL Calcium 8.8 (8.4-10.2) mg/dL Calcium panel 04/19/21 Range/Units 07:35 Calcium 8.8 (8.4-10.2) mg/dL Pituitary panel 04/19/21 Range/Units 07:35 Sodium 135 L (137-145) mmol/L Potassium 3.3 L (3.5-5.1) mmol/L Chloride 95 L (98-107) mmol/L Carbon Dioxide 33 H (22-30) mmol/L BUN 15 (9-20) mg/dL Creatinine 1.28 H (0.66-1.25) mg/dL Glucose 110 H (74-99) mg/dL Calcium 8.8 (8.4-10.2) mg/dL Adrenal panel 04/19/21 Range/Units 07:35 Sodium 135 L (137-145) mmol/L Potassium 3.3 L (3.5-5.1) mmol/L Chloride 95 L (98-107) mmol/L Carbon Dioxide 33 H (22-30) mmol/L BUN 15 (9-20) mg/dL Creatinine 1.28 H (0.66-1.25) mg/dL Glucose 110 H (74-99) mg/dL Calcium 8.8 (8.4-10.2) mg/dL Assessment and Plan Assessment: 80 yo male POD #2 left thoracoscopy, robotic-assisted left upper lobectomy with mediastinal lymph node dissection, developed urinary retention 400-600 mL. Has voiding difficulty at baseline Plan: -Keep Mejia place, can F/U as an outpatient in one week for TOV -Continue flomax, will discharge home on flomax
[2021-04-19 11:22] LABS: Appearance,Urine Cloudy (Clear); Bacteria,Urine Occasional /hpf; Bilirubin,Urine Negative (Negative); Blood,Urine Large (Negative); Color,Urine Light Red; Glucose,Urine (UA) Negative (Negative); Ketones,Urine Negative (Negative); Leukocyte Esterase,Urine Small (Negative); Mucus,Urine Rare /hpf; Nitrite,Urine Negative (Negative); Protein,Urine 1+ (Negative); RBC,Urine >182 /hpf (0-5); Specific Gravity,Urine 1.022 (1.001-1.035); Urobilinogen,Urine <2.0 mg/dL (<2.0); WBC,Urine 29 /hpf (0-5)
[2021-04-19] MEDS ORDERED: POTASSIUM CHLORIDE ER 20 MEQ TAB.ER PO ONE (12:00)
[2021-04-19] MEDS: ATORVASTATIN 40 MG TAB PO SCH (19:46)
[2021-04-19] MEDS: allopurinoL 100 MG TAB PO SCH (19:46)
[2021-04-20] MEDS: traMADol 50 MG TAB PO SCH ×3 (06:16→18:02)
[2021-04-20] MEDS: PANTOPRAZOLE 40 MG TABLET PO SCH (06:16)
[2021-04-20] MEDS: KETOROLAC 15 MG/ML 1 ML VIAL IVP SCH (06:16)
[2021-04-20] MEDS: ACETYLCYSTEINE 800 MG/4 ML VIAL INHALATION SCH ×4 (07:32→20:01)
[2021-04-20] MEDS: IPRATROPIUM-ALBUTEROL 3 ML NEB IH SCH ×4 (07:33→20:01)
[2021-04-20] MEDS: hydroCHLOROthiazide 12.5 MG CAP PO SCH (07:49)
[2021-04-20] MEDS: MULTIVITAMINS, THERA 1 EACH TAB PO SCH (07:49)
[2021-04-20] MEDS: atenoloL 50 MG TAB PO SCH (07:49)
[2021-04-20] MEDS: CYCLOBENZAPRINE 10 MG TAB PO SCH (07:49)
[2021-04-20] MEDS: LOSARTAN 50 MG TAB PO SCH (07:49)
[2021-04-20] MEDS: VIT A,C & E-LUTEIN-MINERALS 1 EACH TAB PO SCH ×2 (07:49→21:58)
[2021-04-20] MEDS: amLODIPine 10 MG TAB PO SCH (07:49)
[2021-04-20] MEDS: POTASSIUM CHLORIDE ER 20 MEQ TAB.ER PO SCH ×2 (07:49→21:59)
[2021-04-20] MEDS: ASPIRIN 325 MG TAB PO SCH (07:50)
[2021-04-20] MEDS: HEPARIN SODIUM,PORCINE/PF 5,000 UNIT/0.5 ML SYRINGE SQ SCH ×2 (07:50→16:18)
[2021-04-20] MEDS: CITALOPRAM HYDROBROMIDE 20 MG TAB PO SCH (07:53)
[2021-04-20 08:07] LABS: HCT 33.5 % (39.0-53.0); HGB 11.2 gm/dL (13.0-17.5); MCH 31.4 pg (25.0-35.0); MCHC 33.5 g/dL (31.0-37.0); MCV 93.7 fL (80.0-100.0); Mean Platelet Volume 7.5; Platelet Count 207 k/uL (150-450); RBC 3.58 m/uL (4.30-5.90); RDW 14.3 % (11.5-15.5); WBC 8.3 k/uL (3.8-10.6)
--- NOTE | 2021-04-20 08:20 | XR ---
EXAMINATION TYPE: XR chest 1V portable DATE OF EXAM: 04/20/2021 COMPARISON: Chest x-ray 04/19/2021 HISTORY: Pneumothorax, postop, chest tube TECHNIQUE: Single frontal view of the chest is obtained. FINDINGS: Left-sided chest tube is again noted. Small left apical pneumothorax is present. There is volume loss in the left hemithorax. Cardiac mediastinal silhouette shows a similar appearance. Parenc hymal density in the perihilar region is again noted. Aorta is dense. Strand-like densities in the ri ght lung are present which may reflect atelectatic change. IMPRESSION: Postop changes.
[2021-04-20 08:24] LABS: Calcium 9.2 mg/dL (8.4-10.2); Magnesium 1.9 mg/dL (1.6-2.3); Potassium 3.8 mmol/L (3.5-5.1)
--- NOTE | 2021-04-20 09:52 | P.PN ---
Subjective Progress Note Date: 04/20/21 80-year-old white male patient with a past medical history hypertension, hyperl ipidemia, aortic valve stenosis, obstructive sleep apnea, BPH, anxiety, previous history of malignant melanoma, who was referred to Dr. Ramirez for evaluation of a left mid lung nodule/tumor. Patient was recently in the hospital for dehydration and weakness. Computed tomography scan of the chest showed a lesion in the left mid lung measuring 2.2 cm. Patient had outpatient PET scan that showed a positive uptake in this lesion but no evidence of metastatic disease. Patient carries a [id number] smoking history. He quit smoking at the age of 53. 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 He had a PFT in the office that showed FEV1 of 2.64 L or 82% of predicted, an FVC of 3.78 L or 84% of predicted, and MVV 64% of predicted. Patient was referred to Dr. Whiting for excisional surgery of the left upper lobe. Today on 04/17/2021 patient had left thoracoscopy robotic-assisted left upper lobectomy with mediastinal lymph node dissection. He seen in the postoperative period in the recovery room, he is resting comfortably on the gurney, he is still a bit drowsy, but he is answering questions appropriately, he is currently on a simple face mask, and only 2 L of oxygen, his pulse ox is 98%, he is breathing comfortably, he is in sinus mechanism, hemodynamically he stable, left-sided chest tube is in place to wall suction and there is a continuous air leak, postoperative chest x-ray has been reviewed showing new left upper lung pleural air collection, no mediastinal shift, left-sided chest tube in place, left central atelectatic change, back on the low lung volumes and chronic emphysematous and pulmonary fibrotic changes. On today's evaluation of 04/18/2021 the patient is postop day #1. He underwent a left upper lobe resection. The patient continues to have a loculated pneumothorax in the left upper lobe on today's chest x-ray. Chest tube is in a good location with the left hemithorax and there is continuous air leak and wall suction his to being applied. He is using incentive spirometer. His bowling approximately thousand. His pain is under adequate control. No worsening shortness of breath and no subcutaneous emphysema. No chest pain. No pleurisy. No hemoptysis. No other significant events overnight. His potassium came down at 2.7 and is being replaced. Creatinine is at 1.1. Sodium is 137. The pat ient has a white cell count of 7.8 patient medication of been all resumed. On a separate note, the patient has not urinated since yesterday. The Mejia catheter removed. We'll proceed with a bladder scan. 04/19/2021, the patient is on room air oxygen. Chest x-ray showing some diminution of the left-sided pneumothorax and it is obviously smaller in size. The chest tube is in good location. There is positive air leak. Clinically doing well. No specific complaints. He is currently pulse oxing 91% room air oxygen. Hemodynamically stable. He has adequate pain control. Using incentive spirometer. Hemoglobin is at 11.2. Electrolytes are normal with a normal sodium of 135, potassium is 3.3 and his been replaced, is having urinary retention and a Mejia catheter was reinserted. He was given Flomax. 04/20/2021, the patient remains on room air oxygen. His interval the my notion and further since improvement in left-sided pneumothorax. There is also positive air leak. Using incentive spirometer. No chest pain. Mejia catheter in place. The patient was seen by urology. Pain is under good control. No other significant events overnight. He is calm and comfortable and he is also hemodynamically stable. No other significant issues otherwise for now. Final pathology from the left upper lobe resection still pending. Objective - Vital Signs Vital signs: Vital Signs Temp 98.4 F 04/20/21 07:43 Pulse 85 04/20/21 07:43 Resp 18 04/20/21 07:43 BP 142/67 04/20/21 07:43 Pulse Ox 96 04/20/21 07:43 Intake & Output 04/19/21 04/20/21 04/20/21 18:59 06:59 18:59 Intake Total 1560 1450 Output Total 640 750 440 Balance 920 700 -440 Weight 94 kg Intake: Oral 1560 1450 Output: Chest Tube Drainage 90 150 40 Chest Tube Left Upper 90 150 40 Anterior Chest Urine 550 600 400 Uretheral (Mejia) 550 150 Other: Voiding Method Indwelling Catheter Indwelling Catheter Indwelling Catheter - Exam CONSTITUTIONAL: Appears comfortable, cooperative, no acute distress RESPIRATORY: Lungs sounds diminished bilaterally. Respirations even, nonlabored. Currently on room air with oxygen saturation 95%. Able to achieve 1500 mL on incentive spirometry. Strong cough. CARDIOVASCULAR: S1, S2 present. Regular rate and rhythm, sinus rhythm on telemetry. Palpable peripheral pulses bilaterally. No edema present. No calf pain or tenderness noted. SCDs present. GASTROINTESTINAL: Abdomen soft, nontender, nondistended. Active bowel sounds present 4 quadrants. Tolerating diet. GENITOURINARY: Continues to void clear, yellow urine INTEGUMENTARY: Skin is warm and dry with evidence of good perfusion. Thoracic incisions well approximated and covered with dry intact dressing. NEUROLOGIC: Cranial nerves II through XII intact MUSKULOSKELETAL: Able to move all extremities, strength equal bilaterally, gait normal PSYCHIATRIC: Alert and oriented to person place and time, appropriate affect, intact judgment and insight INVASIVE LINES AND TUBES: Left pleural chest tube present and connected to wall suction, continuous air leak present, output is minimal and his doing 1500 on his incentive spirometer. - Labs CBC & Chem 7: 04/20/21 07:08 04/20/21 07:08 Labs: Abnormal Lab Results - Last 24 Hours (Table) 04/19/21 04/20/21 04/20/21 Range/Units 11:00 07:08 07:08 RBC 3.58 L (4.30-5.90) m/uL Hgb 11.2 L (13.0-17.5) gm/dL Hct 33.5 L (39.0-53.0) % Sodium 136 L (137-145) mmol/L Chloride 97 L (98-107) mmol/L Glucose 108 H (74-99) mg/dL Urine Protein 1+ H (Negative) Urine Blood Large H (Negative) Ur Leukocyte Esterase Small H (Negative) Urine RBC >182 H (0-5) /hpf Urine WBC 29 H (0-5) /hpf Urine Bacteria Occasional H (None) /hpf Urine Mucus Rare H (None) /hpf Microbiology - Last 24 Hours (Table) 04/19/21 11:00 Urine Culture - Preliminary Urine,Voided Assessment and Plan Plan: #1. 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 The patient continues to have a loculated pneumothorax and left upper lobe. There is persistent air leak and the chest was kept in place and will be applied to wall suction. Output from the chest tube is minimal in terms of fluid. This persisted there leak. There is further interval improvement in size of a left-sided pneumothorax. There is persistent air leak. Chest tube will be kept in place. Output is minimal at this point in time. Happy with the progression. Clinically asymptomatic. Currently on room air oxygen. #2. History of hypertension #3. Patient is a former smoker, carries a [id number] smoking history, in rem ission for the last 20 years #4. History of hypercholesterolemia #5. GERD/reflux #6. History of obstructive sleep apnea on CPAP #7. Osteoarthritis #8 urinary retention and a Mejia cath is in place Plan Keep the right-sided left-sided chest tube in place and keep the chest tube to Wall suction Daily chest x-rays Pain control Incentive spirometer We'll continue to follow Urology consultations has been obtained and the Mejia catheter WILL be kept in place and the patient is on Flomax.
--- NOTE | 2021-04-20 11:59 | P.PN ---
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 Past medical history of tobacco dependence, obstructive sleep apnea on home CPAP, hypertensio n, hyperlipidemia, GERD, and osteoarthritis. POD #3 left thoracoscopy, robotic-assisted left upper lobectomy with mediastinal lymph node dissection. Postoperative acute urinary retention, unexpected. The patient was seen in follow-up today 04/20/2021 at his bedside on the cardiac stepdown unit. Currently sitting up to the bedside chair, is awake, alert and oriented 3. Denies any complaints of pain or shortness of breath at this time. Left pleural chest tube remains in place to low continuous wall suction -20 cm H2O. Intermittent air leak is present. Draining thin serosanguineous drainage with 110 mL output in the last 8 hours and 250 mL output last 24 hours. Oxygen saturations are 95% on room air and he is achieving 1500 mL on his incentive spirometry. Cisneros catheter remains in place due to some urinary retention. Urology consult was placed and he was seen yesterday with recommendations to keep Cisneros in place and follow-up as an outpatient in 1 week. Further recommendations were to continue his Flomax. Chest x-ray today continues to show a small left apical pneumothorax. Objective - Vital Signs Vital signs: Vital Signs Temp 98.4 F 04/20/21 07:43 Pulse 72 04/20/21 11:14 Resp 18 04/20/21 07:43 BP 142/67 04/20/21 07:43 Pulse Ox 96 04/20/21 07:43 Intake & Output 04/19/21 04/20/21 04/20/21 18:59 06:59 18:59 Intake Total 1560 1450 Output Total 640 750 440 Balance 920 700 -440 Weight 94 kg Intake: Oral 1560 1450 Output: Chest Tube Drainage 90 150 40 Chest Tube Left Upper 90 150 40 Anterior Chest Urine 550 600 400 Uretheral (Cisneros) 550 150 Other: Voiding Method Indwelling Catheter Indwelling Catheter Indwelling Catheter - Exam CONSTITUTIONAL: Sitting up to the bedside chair on the cardiac stepdown unit. Appears comfortable, cooperative, no apparent acute distress HEENT: Neck is supple, no JVD, no lymphadenopathy. RESPIRATORY: Lungs sounds diminished bilaterally with scattered expiratory wheezes. Respirations are symmetrical, and nonlabored. Currently on room air with oxygen saturation 95%. Able to achieve 1500 mL on incentive spirometry. Strong cough. CARDIOVASCULAR: S1, S2 present. Regular rate and rhythm, sinus rhythm on remote telemetry, heart rate 81 bpm. Palpable peripheral pulses bilaterally. No edema present. No calf pain or tenderness noted. SCDs present. GASTROINTESTINAL: Abdomen soft, nontender, nondistended. Active bowel sounds present 4 quadrants. Tolerating diet. GENITOURINARY: Cisneros present for urinary retention, draining clear, yellow urine. INTEGUMENTARY: Skin is warm and dry with evidence of good perfusion. Left chest thoracoscopic incisions well approximated and covered with dry intact dressing. NEUROLOGIC: Cranial nerves II through XII intact. MUSKULOSKELETAL: Able to move all extremities, strength equal bilaterally, gait normal PSYCHIATRIC: Alert and oriented to person place and time, appropriate affect, intact judgment and insight INVASIVE LINES AND TUBES: Left pleural chest tube present and connected to low continuous wall suction -20 cm H2O, intermittent air leak present, 110 mL s erosanguineous drainage overnight, 250 mL in the last 24 hours. - Labs CBC & Chem 7: 04/20/21 07:08 04/20/21 07:08 Labs: Abnormal Lab Results - Last 24 Hours (Table) 04/19/21 04/20/21 04/20/21 Range/Units 11:00 07:08 07:08 RBC 3.58 L (4.30-5.90) m/uL Hgb 11.2 L (13.0-17.5) gm/dL Hct 33.5 L (39.0-53.0) % Sodium 136 L (137-145) mmol/L Chloride 97 L (98-107) mmol/L Glucose 108 H (74-99) mg/dL Urine Protein 1+ H (Negative) Urine Blood Large H (Negative) Ur Leukocyte Esterase Small H (Negative) Urine RBC >182 H (0-5) /hpf Urine WBC 29 H (0-5) /hpf Urine Bacteria Occasional H (None) /hpf Urine Mucus Rare H (None) /hpf Microbiology - Last 24 Hours (Table) 04/19/21 11:00 Urine Culture - Preliminary Urine,Voided Assessment and Plan Assessment: 1. 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 Intermittent air leak 3. Previous tobacco dependence 4. Obstructive sleep apnea on home CPAP 5. Hypertension 6. Hyperlipidemia 7. GERD 8. Osteoarthritis 9. Postoperative acute urinary retention, requiring placement of cisneros catheter Plan: 1. Keep left pleural chest tube to low continuous wall suction -20 cm H2O continue to monitor for air leak resolution. 2. Encourage incentive spirometry 10 times every hour while awake. 3. Bronchodilators per pulmonology management. 4. Will monitor daily chest x-rays. 5. Pain control with current medication regimen, were all discontinued. 6. Increase activity, ambulate as tolerated. May take off suction for short time for ambulation in the hallway. Must be out of bed for all meals. 7. GI/DVT prophylaxis. 8. Continue Flomax. Urine culture result pending. Urology consult noted and appreciated. 9. More recommendations to follow based on patient's clinical course. Time with Patient: Greater than 30
[2021-04-20] MEDS: TAMSULOSIN 0.4 MG CAP.ER.24H PO SCH (18:03)
[2021-04-20] MEDS: ATORVASTATIN 40 MG TAB PO SCH (21:58)
[2021-04-20] MEDS: allopurinoL 100 MG TAB PO SCH (21:58)
[2021-04-21] MEDS: traMADol 50 MG TAB PO SCH ×5 (00:47→23:07)
[2021-04-21] MEDS: HEPARIN SODIUM,PORCINE/PF 5,000 UNIT/0.5 ML SYRINGE SQ SCH ×4 (00:47→23:07)
[2021-04-21] MEDS: PANTOPRAZOLE 40 MG TABLET PO SCH (06:31)
--- NOTE | 2021-04-21 07:43 | XR ---
EXAMINATION TYPE: XR chest 1V portable DATE OF EXAM: 04/21/2021 COMPARISON: Chest x-ray 04/20/2021 HISTORY: Postop, left chest tube TECHNIQUE: Single frontal view of the chest is obtained. FINDINGS: Left apical pneumothorax persists. There is a left-sided chest tube in place. Cardiac medi astinal silhouette shows a similar appearance. There are overlying artifacts. Abnormal density in the left upper lung may be related to patient's surgery. Volume loss is present in the left hemithorax. IMPRESSION: Postop lobectomy changes. Persistent apical pneumothorax.
[2021-04-21] MEDS: ACETYLCYSTEINE 800 MG/4 ML VIAL INHALATION SCH ×4 (08:09→20:00)
[2021-04-21] MEDS: IPRATROPIUM-ALBUTEROL 3 ML NEB IH SCH ×4 (08:09→20:00)
[2021-04-21] MEDS: CITALOPRAM HYDROBROMIDE 20 MG TAB PO SCH (08:11)
[2021-04-21] MEDS: LOSARTAN 50 MG TAB PO SCH (08:11)
[2021-04-21] MEDS: amLODIPine 10 MG TAB PO SCH (08:11)
[2021-04-21] MEDS: MULTIVITAMINS, THERA 1 EACH TAB PO SCH (08:11)
[2021-04-21] MEDS: ASPIRIN 325 MG TAB PO SCH (08:11)
[2021-04-21] MEDS: POTASSIUM CHLORIDE ER 20 MEQ TAB.ER PO SCH ×2 (08:11→20:24)
[2021-04-21] MEDS: CYCLOBENZAPRINE 10 MG TAB PO SCH (08:11)
[2021-04-21] MEDS: atenoloL 50 MG TAB PO SCH (08:12)
[2021-04-21] MEDS: hydroCHLOROthiazide 12.5 MG CAP PO SCH (08:19)
[2021-04-21] MEDS: VIT A,C & E-LUTEIN-MINERALS 1 EACH TAB PO SCH ×2 (08:19→20:24)
[2021-04-21 09:33] LABS: Potassium 3.4 mmol/L (3.5-5.1)
--- NOTE | 2021-04-21 09:49 | P.PN ---
Subjective Progress Note Date: 04/21/21 80-year-old white male patient with a past medical history hypertension, hyperl ipidemia, aortic valve stenosis, obstructive sleep apnea, BPH, anxiety, previous history of malignant melanoma, who was referred to Dr. Ramirez for evaluation of a left mid lung nodule/tumor. Patient was recently in the hospital for dehydration and weakness. Computed tomography scan of the chest showed a lesion in the left mid lung measuring 2.2 cm. Patient had outpatient PET scan that showed a positive uptake in this lesion but no evidence of metastatic disease. Patient carries a [id number] smoking history. He quit smoking at the age of 53. 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 He had a PFT in the office that showed FEV1 of 2.64 L or 82% of predicted, an FVC of 3.78 L or 84% of predicted, and MVV 64% of predicted. Patient was referred to Dr. Whiting for excisional surgery of the left upper lobe. Today on 04/17/2021 patient had left thoracoscopy robotic-assisted left upper lobectomy with mediastinal lymph node dissection. He seen in the postoperative period in the recovery room, he is resting comfortably on the gurney, he is still a bit drowsy, but he is answering questions appropriately, he is currently on a simple face mask, and only 2 L of oxygen, his pulse ox is 98%, he is breathing comfortably, he is in sinus mechanism, hemodynamically he stable, left-sided chest tube is in place to wall suction and there is a continuous air leak, postoperative chest x-ray has been reviewed showing new left upper lung pleural air collection, no mediastinal shift, left-sided chest tube in place, left central atelectatic change, back on the low lung volumes and chronic emphysematous and pulmonary fibrotic changes. On today's evaluation of 04/18/2021 the patient is postop day #1. He underwent a left upper lobe resection. The patient continues to have a loculated pneumothorax in the left upper lobe on today's chest x-ray. Chest tube is in a good location with the left hemithorax and there is continuous air leak and wall suction his to being applied. He is using incentive spirometer. His bowling approximately thousand. His pain is under adequate control. No worsening shortness of breath and no subcutaneous emphysema. No chest pain. No pleurisy. No hemoptysis. No other significant events overnight. His potassium came down at 2.7 and is being replaced. Creatinine is at 1.1. Sodium is 137. The pat ient has a white cell count of 7.8 patient medication of been all resumed. On a separate note, the patient has not urinated since yesterday. The Mejia catheter removed. We'll proceed with a bladder scan. 04/19/2021, the patient is on room air oxygen. Chest x-ray showing some diminution of the left-sided pneumothorax and it is obviously smaller in size. The chest tube is in good location. There is positive air leak. Clinically doing well. No specific complaints. He is currently pulse oxing 91% room air oxygen. Hemodynamically stable. He has adequate pain control. Using incentive spirometer. Hemoglobin is at 11.2. Electrolytes are normal with a normal sodium of 135, potassium is 3.3 and his been replaced, is having urinary retention and a Mejia catheter was reinserted. He was given Flomax. 04/20/2021, the patient remains on room air oxygen. His interval the my notion and further since improvement in left-sided pneumothorax. There is also positive air leak. Using incentive spirometer. No chest pain. Mejia catheter in place. The patient was seen by urology. Pain is under good control. No other significant events overnight. He is calm and comfortable and he is also hemodynamically stable. No other significant issues otherwise for now. Final pathology from the left upper lobe resection still pending. 2020, still having some limited air leak and the patient also has a left- sided pneumothorax which is still unchanged. Nevertheless, the chest tube is in a good location is using incentive spirometer and he is feeling good and he is tolerating diet and he has no other major issues for now. The active issue is his ongoing air leak and the persistent pneumothorax that occurred following his left upper lobe resection. The patient is postop day #4. Objective - Vital Signs Vital signs: Vital Signs Temp 97.9 F 04/21/21 04:00 Pulse 76 04/21/21 08:23 Resp 18 04/21/21 08:00 BP 149/60 04/21/21 08:00 Pulse Ox 96 04/21/21 08:00 Intake & Output 04/20/21 04/21/21 04/21/21 18:59 06:59 18:59 Intake Total 720 240 Output Total 800 1200 0 Balance -80 -1200 240 Weight 69.5 kg Intake: Oral 720 240 Output: Chest Tube Drainage 100 0 0 Chest Tube Left Upper 100 0 0 Anterior Chest Urine 700 1200 Other: Voiding Method Indwelling Catheter Indwelling Catheter Indwelling Catheter - Exam CONSTITUTIONAL: Appears comfortable, cooperative, no acute distress RESPIRATORY: Lungs sounds diminished bilaterally. Respirations even, nonlabored. Currently on room air with oxygen saturation 95%. Able to achieve 1500 mL on incentive spirometry. Strong cough. CARDIOVASCULAR: S1, S2 present. Regular rate and rhythm, sinus rhythm on telemetry. Palpable peripheral pulses bilaterally. No edema present. No calf pain or tenderness noted. SCDs present. GASTROINTESTINAL: Abdomen soft, nontender, nondistended. Active bowel sounds present 4 quadrants. Tolerating diet. GENITOURINARY: Continues to void clear, yellow urine INTEGUMENTARY: Skin is warm and dry with evidence of good perfusion. Thoracic incisions well approximated and covered with dry intact dressing. NEUROLOGIC: Cranial nerves II through XII intact MUSKULOSKELETAL: Able to move all extremities, strength equal bilaterally, gait normal PSYCHIATRIC: Alert and oriented to person place and time, appropriate affect, intact judgment and insight INVASIVE LINES AND TUBES: Left pleural chest tube present and connected to wall suction, continuous air leak present, output is minimal and his doing 1500 on his incentive spirometer. - Labs CBC & Chem 7: 04/20/21 07:08 04/21/21 08:32 Labs: Abnormal Lab Results - Last 24 Hours (Table) 04/21/21 Range/Units 08:32 Sodium 134 L (137-145) mmol/L Potassium 3.4 L (3.5-5.1) mmol/L Chloride 96 L (98-107) mmol/L Glucose 102 H (74-99) mg/dL Microbiology - Last 24 Hours (Table) 04/19/21 11:00 Urine Culture - Final Urine,Voided Assessment and Plan Plan: #1. 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 The patient continues to have a loculated pneumothorax and left upper lobe. There is persistent air leak and the chest was kept in place and will be applied to wall suction. Output from the chest tube is minimal in terms of fluid. The pneumothorax is still present, unchanged compared to yesterday. #2. History of hypertension #3. Patient is a former smoker, carries a [id number] smoking history, in r emission for the last 20 years #4. History of hypercholesterolemia #5. GERD/reflux #6. History of obstructive sleep apnea on CPAP #7. Osteoarthritis #8 urinary retention and a Mejia cath is in place Plan Keep the right-sided left-sided chest tube in place and keep the chest tube to suction The chest x-ray showing persistent left apical pneumothorax. We'll continue to monitor. Repeat chest x-ray in the morning. The patient is doing well. Hemodynamically stable. We'll continue to follow. Daily chest x-rays Pain control Incentive spirometer We'll continue to follow Urology consultations has been obtained and the Mejia catheter WILL be kept in place and the patient is on Flomax.
[2021-04-21] MEDS ORDERED: POTASSIUM CHLORIDE ER 20 MEQ TAB.ER PO STA (11:41)
[2021-04-21] MEDS: bisacodyL 5 MG TABLET.DR PO PRN (12:08)
--- NOTE | 2021-04-21 12:22 | P.PN ---
Subjective Progress Note Date: 04/21/21 Principal diagnosis: Well differentiated neuroendocrine tumor of the left upper lobe. Past medical history of tobacco dependence, obstructive sleep apnea on home CPAP, hypertensio n, hyperlipidemia, GERD, and osteoarthritis. POD #4 left thoracoscopy, robotic-assisted left upper lobectomy with mediastinal lymph node dissection. Postoperative acute urinary retention, unexpected. The patient was seen in follow-up today 04/21/2021 at his bedside on the cardiac stepdown unit. Currently sitting up to the bedside chair, is awake, alert and oriented 3. Denies any complaints of pain or shortness of breath at this time. Left pleural chest tube remains in place to low continuous wall suction -20 cm H2O. Intermittent air leak remains. Draining thin serosanguineous drainage with 50 mL output last 24 hours. Oxygen saturations are 94% on room air and he is achieving 5973-7153 mL on his incentive spirometry. Cisneros catheter remains in place due to some urinary retention. Urology is following, with recommendations to keep Cisneros in place and follow-up as an outpatient in 1 week. He remains on Flomax. Chest x-ray today continues to show a persistent small left apical pneumothorax. The patient is is anxious to be discharged home. He reports he has been ambulating in his room with minimal assistance from nursing staff. Is complaining of some constipation today. Objective - Vital Signs Vital signs: Vital Signs Temp 97.9 F 04/21/21 12:00 Pulse 88 04/21/21 12:00 Resp 18 04/21/21 12:00 BP 156/68 04/21/21 12:00 Pulse Ox 95 04/21/21 12:00 Intake & Output 04/20/21 04/21/21 04/21/21 18:59 06:59 18:59 Intake Total 720 240 Output Total 800 1200 0 Balance -80 -1200 240 Weight 69.5 kg Intake: Oral 720 240 Output: Chest Tube Drainage 100 0 0 Chest Tube Left Upper 100 0 0 Anterior Chest Urine 700 1200 Other: Voiding Method Indwelling Catheter Indwelling Catheter Indwelling Catheter - Exam CONSTITUTIONAL: Sitting up to the bedside chair on the cardiac stepdown unit. Appears comfortable, cooperative, no apparent acute distress HEENT: Neck is supple, no JVD, no lymphadenopathy. RESPIRATORY: Lungs sounds diminished bilaterally with scattered rhonchi. Respirations are symmetrical, and nonlabored. Currently on room air with oxygen saturation 94%. Able to achieve 6412-0108 mL on incentive spirometry. Strong cough. CARDIOVASCULAR: S1, S2 present. Regular rate and rhythm, sinus rhythm on remote telemetry, heart rate 96 bpm. Palpable peripheral pulses bilaterally. No edema present. No calf pain or tenderness noted. SCDs present to his bilateral lower extremities. GASTROINTESTINAL: Abdomen soft, nontender, nondistended. Active bowel sounds present 4 quadrants. Tolerating diet. Passing flatus. GENITOURINARY: Cisneros present for urinary retention, draining clear, yellow urine. INTEGUMENTARY: Skin is warm and dry with evidence of good perfusion. Left chest thoracoscopic incisions well approximated and covered with dry intact dressing. NEUROLOGIC: Cranial nerves II through XII intact. MUSKULOSKELETAL: Able to move all extremities, strength equal bilaterally, gait normal PSYCHIATRIC: Alert and oriented to person place and time, appropriate affect, intact judgment and insight INVASIVE LINES AND TUBES: Left pleural chest tube present and connected to low continuous wall suction -20 cm H2O, persistent intermittent air leak present, 50 mL in the last 24 hours. - Labs CBC & Chem 7: 04/20/21 07:08 04/21/21 08:32 Labs: Abnormal Lab Results - Last 24 Hours (Table) 04/21/21 Range/Units 08:32 Sodium 134 L (137-145) mmol/L Potassium 3.4 L (3.5-5.1) mmol/L Chloride 96 L (98-107) mmol/L Glucose 102 H (74-99) mg/dL Microbiology - Last 24 Hours (Table) 04/19/21 11:00 Urine Culture - Final Urine,Voided Assessment and Plan Assessment: 1. Well differentiated neuroendocrine tumor of the left upper lobe, status post left thoracoscopy, robotic-assisted left upper lobectomy, with a persistent left apical pneumothorax 2. Persistent intermittent air leak 3. Previous tobacco dependence 4. Obstructive sleep apnea on home CPAP 5. Hypertension 6. Hyperlipidemia 7. GERD 8. Osteoarthritis 9. Postoperative acute urinary retention, requiring placement of cisneros catheter Plan: 1. Keep left pleural chest tube to low continuous wall suction -20 cm H2O continue to monitor for air leak resolution. 2. Continue to encourage use of his incentive spirometry 10 times every hour while awake. 3. Bronchodilators per pulmonology management. 4. Will monitor daily chest x-rays. 5. Pain control with current medication regimen. 6. Increase activity, ambulate as tolerated. May take off suction for short time for ambulation in the hallway. Must be out of bed for all meals. 7. GI/DVT prophylaxis. 8. Continue Flomax. Urine culture showed no growth after 18 hours. Urology following, recommendations appreciated. 9. Pathology results remain pending, will continue to follow. 10. More recommendations to follow based on patient's clinical course. Time with Patient: Greater than 30
[2021-04-21] MEDS: TAMSULOSIN 0.4 MG CAP.ER.24H PO SCH (18:19)
[2021-04-21] MEDS: ATORVASTATIN 40 MG TAB PO SCH (20:24)
[2021-04-21] MEDS: allopurinoL 100 MG TAB PO SCH (20:25)
[2021-04-22] MEDS: PANTOPRAZOLE 40 MG TABLET PO SCH (06:04)
[2021-04-22] MEDS: traMADol 50 MG TAB PO SCH ×4 (06:04→23:07)
[2021-04-22 07:52] LABS: Calcium 9.4 mg/dL (8.4-10.2); Magnesium 1.8 mg/dL (1.6-2.3); Potassium 4.8 mmol/L (3.5-5.1)
[2021-04-22] MEDS: VIT A,C & E-LUTEIN-MINERALS 1 EACH TAB PO SCH ×2 (07:56→20:26)
[2021-04-22] MEDS: HEPARIN SODIUM,PORCINE/PF 5,000 UNIT/0.5 ML SYRINGE SQ SCH ×3 (07:56→23:07)
[2021-04-22] MEDS: CYCLOBENZAPRINE 10 MG TAB PO SCH (07:57)
[2021-04-22] MEDS: CITALOPRAM HYDROBROMIDE 20 MG TAB PO SCH (07:57)
[2021-04-22] MEDS: LOSARTAN 50 MG TAB PO SCH (07:57)
[2021-04-22] MEDS: POTASSIUM CHLORIDE ER 20 MEQ TAB.ER PO SCH ×3 (07:57→20:27)
[2021-04-22] MEDS: MULTIVITAMINS, THERA 1 EACH TAB PO SCH (07:57)
[2021-04-22] MEDS: amLODIPine 10 MG TAB PO SCH (07:57)
[2021-04-22] MEDS: ASPIRIN 325 MG TAB PO SCH (07:57)
[2021-04-22] MEDS: atenoloL 50 MG TAB PO SCH (07:57)
[2021-04-22] MEDS: hydroCHLOROthiazide 12.5 MG CAP PO SCH (07:57)
[2021-04-22] MEDS: IPRATROPIUM-ALBUTEROL 3 ML NEB IH SCH ×4 (09:41→19:52)
[2021-04-22] MEDS: ACETYLCYSTEINE 800 MG/4 ML VIAL INHALATION SCH ×4 (09:41→19:51)
[2021-04-22] MEDS: MAGNESIUM SULFATE-D5W PMX 1 GM in DEXTROSE/WATER 1 100ML.BAG IVPB SCH ×2 (10:17→11:14)
--- NOTE | 2021-04-22 10:30 | XR ---
EXAMINATION TYPE: XR chest 1V portable DATE OF EXAM: 04/22/2021 COMPARISON: Chest x-ray 04/21/2021 HISTORY: Postop left upper lobectomy, chest tube TECHNIQUE: Single frontal view of the chest is obtained. FINDINGS: There are overlying artifacts. Left-sided chest tube remains in place. Left apical pneumot horax persists. Cardiac mediastinal silhouette is stable. Abnormal density in the suprahilar region m ay be related to patient's surgery. Right lung is spared. There is volume loss in the left hemithorax . IMPRESSION: Findings are similar to prior exam. Left-sided pneumothorax is stable.
--- NOTE | 2021-04-22 11:33 | P.PN ---
Subjective Progress Note Date: 04/22/21 Principal diagnosis: Well differentiated neuroendocrine tumor of the left upper lobe. Previous medical history of previous tobacco dependence, obstructive sleep apnea on home CPAP, hypertension, hyperlipidemia, GERD, osteoarthritis POD #5 left thoracoscopy, robotic-assisted left upper lobectomy with mediastinal lymph node dissection Postoperative acute urinary retention, unexpected The patient's currently sitting up in a recliner in the cardiac stepdown unit in no acute distress, states pain is controlled on current medication regimen, denies shortness of breath. He has been ambulatory without difficulty. Left pleural chest tube remains to continuous wall suction, intermittent air leak with expiration so present. He has been using incentive spirometry and achievi ng 1250 mL. Mejia catheter remains in place per recommendations from urology. Patient is anxious to go home. No other new concerns Objective - Vital Signs Vital signs: Vital Signs Temp 98.5 F 04/22/21 07:53 Pulse 79 04/22/21 11:16 Resp 18 04/22/21 11:16 BP 129/76 04/22/21 11:16 Pulse Ox 94 L 04/22/21 11:16 Intake & Output 04/21/21 04/22/21 04/22/21 18:59 06:59 18:59 Intake Total 598 118 Output Total 500 590 105 Balance 98 -590 13 Weight 92.7 kg Intake: Oral 598 118 Output: Chest Tube Drainage 50 40 5 Chest Tube Left Upper 50 40 5 Anterior Chest Urine 450 550 100 Other: Voiding Method Indwelling Catheter Indwelling Catheter Indwelling Catheter # Bowel Movements 0 - Exam CONSTITUTIONAL: Appears comfortable, cooperative, no acute distress RESPIRATORY: Lungs sounds diminished bilaterally. Respirations even, nonlabored. Currently on room air with oxygen saturation 96%. Able to achieve 1250 mL on incentive spirometry. Strong cough. CARDIOVASCULAR: S1, S2 present. Regular rate and rhythm, sinus rhythm on telemetry. Palpable peripheral pulses bilaterally. No edema present. No calf pain or tenderness noted. SCDs present. GASTROINTESTINAL: Abdomen soft, nontender, nondistended. Active bowel sounds present 4 quadrants. Tolerating diet. GENITOURINARY: Mejia present draining clear, yellow urine INTEGUMENTARY: Skin is warm and dry with evidence of good perfusion. Thoracic incision well approximated and covered with dry intact dressing. NEUROLOGIC: Cranial nerves II through XII intact MUSKULOSKELETAL: Able to move all extremities, strength equal bilaterally, gait normal PSYCHIATRIC: Alert and oriented to person place and time, appropriate affect, intact judgment and insight INVASIVE LINES AND TUBES: Left pleural chest tubes present and connected to w all suction, intermittent air leaks present with expiration, 40 mL serosanguineous drainage overnight, 90 mL in the last 24 hours. - Allied health notes Allied health notes reviewed: nursing - Labs CBC & Chem 7: 04/20/21 07:08 04/22/21 07:09 Labs: Abnormal Lab Results - Last 24 Hours (Table) 04/22/21 Range/Units 07:09 Sodium 134 L (137-145) mmol/L Chloride 97 L (98-107) mmol/L Glucose 110 H (74-99) mg/dL - Imaging and Cardiology Chest x-ray: report reviewed, image reviewed Assessment and Plan Assessment: 1. 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 Continuous air leak, now intermittent with persistent left apical pneumothorax 3. Previous tobacco dependence 4. Obstructive sleep apnea on home CPAP 5. Hypertension 6. Hyperlipidemia 7. GERD 8. Osteoarthritis 9. Postoperative acute urinary retention requiring replacement of Mejia catheter Plan: 1. Pleuritic chest tube placed to waterseal this morning. We will repeat chest x-ray 2. Encourage incentive spirometry 10 times every hour while awake 3. Bronchodilators per pulmonology 4. Will monitor daily x-rays 5. Pain control with current medication regimen 6. Increase activity, ambulate as tolerated. Must be out of bed for all meals 7. GI/DVT prophylaxis 8. Continue Flomax. Urine culture negative. Urology recommendations noted and appreciated 9. Lung pathology pending 10. More recommendations to follow Time with Patient: Greater than 30
--- NOTE | 2021-04-22 15:26 | P.PN ---
Subjective Progress Note Date: 04/22/21 Principal diagnosis: Left upper lobe neuroendocrine tumor, status post left thoracoscopy and left upper lobectomy 80-year-old white male patient with a past medical history hypertension, hyperlipidemia, aortic valve stenosis, obstructive sleep apnea, BPH, anxiety, previous history of malignant melanoma, who was referred to Dr. Ramirez for evaluation of a left mid lung nodule/tumor. Patient was recently in the hospital for dehydration and weakness. Computed tomography scan of the chest showed a lesion in the left mid lung measuring 2.2 cm. Patient had outpatient PET scan that showed a positive uptake in this lesion but no evidence of metastatic disease. Patient carries a [id number] smoking history. He quit smoking at the age of 53. 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 He had a PFT in the office that showed FEV1 of 2.64 L or 82% of predicted, an FVC of 3.78 L or 84% of predicted, and MVV 64% of predicted. Patient was referred to Dr. Whiting for excisional surgery of the left upper lobe. Today on 04/17/2021 patient had left thoracoscopy robotic-assisted left upper lobectomy with mediastinal lymph node dissection. He seen in the postoperative period in the recovery room, he is resting comfortably on the gurney, he is still a bit drowsy, but he is answering questions appropriately, he is currently on a simple face mask, and only 2 L of oxygen, his pulse ox is 98%, he is breathing comfortably, he is in sinus mechanism, hemodynamically he stable, left-sided chest tube is in place to wall suction and there is a continuous air leak, postoperative chest x-ray has been reviewed showing new left upper lung pleural air collection, no mediastinal shift, left-sided chest tube in place, left central atelectatic change, back on the low lung volumes and chronic emphysematous and pulmonary fibrotic changes. On today's evaluation of 04/18/2021 the patient is postop day #1. He underwent a left upper lobe resection. The patient continues to have a loculated pneumothorax in the left upper lobe on today's chest x-ray. Chest tube is in a good location with the left hemithorax and there is continuous air leak and wall suction his to being applied. He is using incentive spirometer. His bowling approximately thousand. His pain is under adequate control. No worsening shortness of breath and no subcutaneous emphysema. No chest pain. No pleurisy. No hemoptysis. No other significant events overnight. His potassium came down at 2.7 and is being replaced. Creatinine is at 1.1. Sodium is 137. The patient has a white cell count of 7.8 patient medication of been all resumed. On a separate note, the patient has not urinated since yesterday. The Mejia catheter removed. We'll proceed with a bladder scan. 04/19/2021, the patient is on room air oxygen. Chest x-ray showing some dimin ution of the left-sided pneumothorax and it is obviously smaller in size. The chest tube is in good location. There is positive air leak. Clinically doing well. No specific complaints. He is currently pulse oxing 91% room air oxygen. Hemodynamically stable. He has adequate pain control. Using incentive spirometer. Hemoglobin is at 11.2. Electrolytes are normal with a normal sodium of 135, potassium is 3.3 and his been replaced, is having urinary retention and a Mejia catheter was reinserted. He was given Flomax. 04/20/2021, the patient remains on room air oxygen. His interval the my notion and further since improvement in left-sided pneumothorax. There is also positive air leak. Using incentive spirometer. No chest pain. Mejia catheter in place. The patient was seen by urology. Pain is under good control. No other significant events overnight. He is calm and comfortable and he is also hemodynamically stable. No other significant issues otherwise for now. Final pathology from the left upper lobe resection still pending. 2020, still having some limited air leak and the patient also has a left- sided pneumothorax which is still unchanged. Nevertheless, the chest tube is in a good location is using incentive spirometer and he is feeling good and he is tolerating diet and he has no other major issues for now. The active issue is his ongoing air leak and the persistent pneumothorax that occurred following his left upper lobe resection. The patient is postop day #4. On 04/22/2001 patient seen in follow-up on selective care unit, he is resting comfortably in bed, currently on room air, pulse ox is 94%, breathing comfortably, his cell left-sided chest tube remains in place, and there is still intermittent air leak present, this was placed to waterseal this morning by CT surgery, his chest x-ray this morning showing left-sided chest tube in place, left apical pneumothorax persisted, and abnormal density in the suprahilar region that may be related to issues surgery, and there is volume loss in the left hemithorax. he is working with his incentive spirometer, he is achieving about 1.5 L on the today. His surgical biopsy results are still pending. Today's labs have been reviewed, BNP was done only, showing sodium of 134, potassium is 4.8, chloride is 97, B1 is 20 creatinine is 1.2 Objective - Vital Signs Vital signs: Vital Signs Temp 98.5 F 04/22/21 07:53 Pulse 76 04/22/21 14:24 Resp 18 04/22/21 11:16 BP 129/76 04/22/21 11:16 Pulse Ox 94 L 04/22/21 11:16 Intake & Output 04/21/21 04/22/21 04/22/21 18:59 06:59 18:59 Intake Total 598 718 Output Total 500 590 105 Balance 98 -590 613 Weight 92.7 kg Intake: Intake, IV Titration 200 Amount Magnesium Sulfate-D5w Pmx 200 1 gm In Dextrose/Water 1 100ml.bag @ 100 mls/hr IVPB Q1H [facility] Rx#: [id number] Oral 598 518 Output: Chest Tube Drainage 50 40 5 Chest Tube Left Upper 50 40 5 Anterior Chest Urine 450 550 100 Other: Voiding Method Indwelling Catheter Indwelling Catheter Indwelling Catheter # Bowel Movements 0 - Exam GENERAL EXAM: Alert, very pleasant, 80-year-old white male, on room air, with a pulse ox of 94% comfortable in no apparent distress. HEAD: Normocephalic/atraumatic. EYES: Normal reaction of pupils, equal size. Conjunctiva pink, sclera white. NOSE: Clear with pink turbinates. THROAT: No erythema or exudates. NECK: No masses, no JVD, no thyroid enlargement, no adenopathy. CHEST: No chest wall deformity. Symmetrical expansion. left chest tube in place, currently to water seal, and there is intermittent air leak present left lateral chest incision clean dry and intact LUNGS: Equal air entry with no crackles, no rales, CVS: Regular rate and rhythm, normal S1 and S2, no gallops, no murmurs, no rubs ABDOMEN: Soft, nontender. No hepatosplenomegaly, normal bowel sounds, no guarding or rigidity. EXTREMITIES: No clubbing, no edema, no cyanosis, 2+ pulses and upper and lower extremities. MUSCULOSKELETAL: Muscle strength and tone normal. SPINE: No scoliosis or deformity SKIN: No rashes CENTRAL NERVOUS SYSTEM: Alert and oriented -3. No focal deficits, tone is normal in all 4 extremities. PSYCHIATRIC: Alert and oriented -3. Appropriate affect. Intact judgment and insight. - Labs CBC & Chem 7: 04/20/21 07:08 04/22/21 07:09 Labs: Abnormal Lab Results - Last 24 Hours (Table) 04/22/21 Range/Units 07:09 Sodium 134 L (137-145) mmol/L Chloride 97 L (98-107) mmol/L Glucose 110 H (74-99) mg/dL Assessment and Plan Plan: Assessment: #1. 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 Patient continues to have a l oculated pneumothorax in the left upper lobe. Today he has chest tube has been placed to waterseal. Output from the chest tube is minimal, today's chest x-ray shows persistent left apical pneumothorax, unchanged #2. History of hypertension #3. Patient is a former smoker, carries a 71-[id number]-[id number] smoking history, in remission for the last 20 years #4. History of hypercholesterolemia #5. GERD/reflux #6. History of obstructive sleep apnea on CPAP #7. Osteoarthritis #8. Urinary retention with placement of Mejia catheter Plan: Today's chest x-ray showing persistence of left apical pneumothorax which is unchanged Hemodynamically stable, not requiring any oxygen Surgical biopsies are pending Follow-up chest x-ray in the morning Incentive spirometer to the bedside Antibiotics, GI and DVT prophylaxis per CT surgery Pain control Continue breathing treatments We'll continue to follow along with the CT surgery I performed a history & physical examination of the patient and discussed their management with my nurse practitioner, Jacquie Serna. I reviewed the nurse practitioner's note and agree with the documented findings and plan of care. Lung sounds are positive for diminished breath sounds. The findings and the impression was discussed with the patient. I attest to the documentation by the nurse practitioner. Time with Patient: Less than 30
[2021-04-22] MEDS: bisacodyL 5 MG TABLET.DR PO PRN (16:05)
[2021-04-22] MEDS: TAMSULOSIN 0.4 MG CAP.ER.24H PO SCH (17:16)
[2021-04-22] MEDS: ATORVASTATIN 40 MG TAB PO SCH (20:27)
[2021-04-22] MEDS: allopurinoL 100 MG TAB PO SCH (20:27)
[2021-04-23] MEDS: PANTOPRAZOLE 40 MG TABLET PO SCH (06:13)
[2021-04-23] MEDS: traMADol 50 MG TAB PO SCH (06:13)
[2021-04-23] MEDS ORDERED: traMADol 50 MG TAB PO PRN (06:48)
--- NOTE | 2021-04-23 08:18 | XR ---
EXAMINATION TYPE: XR chest 1V portable DATE OF EXAM: 04/23/2021 COMPARISON: NONE HISTORY: Postop left upper lobectomy, chest tube TECHNIQUE: Single frontal view of the chest is obtained. FINDINGS: There are overlying leads. Left-sided chest tube remains in place. Left apical pneumothora x is slightly larger than prior exam measuring up to 5.5 cm at the greatest portion, previously 4.7 c m. Cardiomediastinal silhouette is stable and shifted to the left. Atherosclerotic aorta. Abnormal de nsity in the suprahilar region may be related to patient's surgery. Right lung is hyperaerated and re latively clear. There is volume loss in the left hemithorax. IMPRESSION: 1. Left-sided pneumothorax is slightly larger than prior exam. Left chest tube is again visualized. C ardiomediastinal shift to the left is stable.
[2021-04-23] MEDS: VIT A,C & E-LUTEIN-MINERALS 1 EACH TAB PO SCH ×2 (08:45→20:20)
[2021-04-23] MEDS: CITALOPRAM HYDROBROMIDE 20 MG TAB PO SCH (08:45)
[2021-04-23] MEDS: hydroCHLOROthiazide 12.5 MG CAP PO SCH (08:45)
[2021-04-23] MEDS: atenoloL 50 MG TAB PO SCH (08:45)
[2021-04-23] MEDS: CYCLOBENZAPRINE 10 MG TAB PO SCH (08:45)
[2021-04-23] MEDS: ASPIRIN 325 MG TAB PO SCH (08:45)
[2021-04-23] MEDS: MULTIVITAMINS, THERA 1 EACH TAB PO SCH (08:45)
[2021-04-23] MEDS: amLODIPine 10 MG TAB PO SCH (08:46)
[2021-04-23] MEDS: HEPARIN SODIUM,PORCINE/PF 5,000 UNIT/0.5 ML SYRINGE SQ SCH ×3 (08:46→22:59)
[2021-04-23] MEDS: LOSARTAN 50 MG TAB PO SCH (08:46)
[2021-04-23] MEDS: ACETYLCYSTEINE 800 MG/4 ML VIAL INHALATION SCH ×4 (08:48→19:41)
[2021-04-23] MEDS: IPRATROPIUM-ALBUTEROL 3 ML NEB IH SCH ×4 (08:48→19:41)
[2021-04-23 10:59] LABS: HCT 32.1 % (39.0-53.0); HGB 10.6 gm/dL (13.0-17.5); MCH 31.4 pg (25.0-35.0); MCHC 32.9 g/dL (31.0-37.0); MCV 95.3 fL (80.0-100.0); Platelet Count 336 k/uL (150-450); RBC 3.37 m/uL (4.30-5.90); RDW 13.3 % (11.5-15.5)
[2021-04-23 11:13] VITALS: BMI 26.6
[2021-04-23 11:20] LABS: Potassium 4.3 mmol/L (3.5-5.1)
[2021-04-23 11:21] LABS: Calcium 9.3 mg/dL (8.4-10.2); Magnesium 2.1 mg/dL (1.6-2.3)
[2021-04-23] MEDS: POTASSIUM CHLORIDE ER 20 MEQ TAB.ER PO SCH ×2 (11:25→20:20)
--- NOTE | 2021-04-23 13:25 | P.PN ---
Subjective Progress Note Date: 04/23/21 Principal diagnosis: Left upper lobe neuroendocrine tumor, status post left thoracoscopy and left upper lobectomy 80-year-old white male patient with a past medical history hypertension, hyperlipidemia, aortic valve stenosis, obstructive sleep apnea, BPH, anxiety, previous history of malignant melanoma, who was referred to Dr. Ramirez for evaluation of a left mid lung nodule/tumor. Patient was recently in the hospital for dehydration and weakness. Computed tomography scan of the chest showed a lesion in the left mid lung measuring 2.2 cm. Patient had outpatient PET scan that showed a positive uptake in this lesion but no evidence of metastatic disease. Patient carries a [id number] smoking history. He quit smoking at the age of 53. 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 He had a PFT in the office that showed FEV1 of 2.64 L or 82% of predicted, an FVC of 3.78 L or 84% of predicted, and MVV 64% of predicted. Patient was referred to Dr. Whiting for excisional surgery of the left upper lobe. Today on 04/17/2021 patient had left thoracoscopy robotic-assisted left upper lobectomy with mediastinal lymph node dissection. He seen in the postoperative period in the recovery room, he is resting comfortably on the gurney, he is still a bit drowsy, but he is answering questions appropriately, he is currently on a simple face mask, and only 2 L of oxygen, his pulse ox is 98%, he is breathing comfortably, he is in sinus mechanism, hemodynamically he stable, left-sided chest tube is in place to wall suction and there is a continuous air leak, postoperative chest x-ray has been reviewed showing new left upper lung pleural air collection, no mediastinal shift, left-sided chest tube in place, left central atelectatic change, back on the low lung volumes and chronic emphysematous and pulmonary fibrotic changes. On today's evaluation of 04/18/2021 the patient is postop day #1. He underwent a left upper lobe resection. The patient continues to have a loculated pneumothorax in the left upper lobe on today's chest x-ray. Chest tube is in a good location with the left hemithorax and there is continuous air leak and wall suction his to being applied. He is using incentive spirometer. His bowling approximately thousand. His pain is under adequate control. No worsening shortness of breath and no subcutaneous emphysema. No chest pain. No pleurisy. No hemoptysis. No other significant events overnight. His potassium came down at 2.7 and is being replaced. Creatinine is at 1.1. Sodium is 137. The patient has a white cell count of 7.8 patient medication of been all resumed. On a separate note, the patient has not urinated since yesterday. The Mejia catheter removed. We'll proceed with a bladder scan. 04/19/2021, the patient is on room air oxygen. Chest x-ray showing some dimi nution of the left-sided pneumothorax and it is obviously smaller in size. The chest tube is in good location. There is positive air leak. Clinically doing well. No specific complaints. He is currently pulse oxing 91% room air oxygen. Hemodynamically stable. He has adequate pain control. Using incentive spirometer. Hemoglobin is at 11.2. Electrolytes are normal with a normal sodium of 135, potassium is 3.3 and his been replaced, is having urinary retention and a Mejia catheter was reinserted. He was given Flomax. 04/20/2021, the patient remains on room air oxygen. His interval the my notion and further since improvement in left-sided pneumothorax. There is also positive air leak. Using incentive spirometer. No chest pain. Mejia catheter in place. The patient was seen by urology. Pain is under good control. No other significant events overnight. He is calm and comfortable and he is also hemodynamically stable. No other significant issues otherwise for now. Final p athology from the left upper lobe resection still pending. 2020, still having some limited air leak and the patient also has a left- sided pneumothorax which is still unchanged. Nevertheless, the chest tube is in a good location is using incentive spirometer and he is feeling good and he is t olerating diet and he has no other major issues for now. The active issue is his ongoing air leak and the persistent pneumothorax that occurred following his left upper lobe resection. The patient is postop day #4. On 04/22/2001 patient seen in follow-up on selective care unit, he is resting comfortably in bed, currently on room air, pulse ox is 94%, breathing comfortably, his cell left-sided chest tube remains in place, and there is still intermittent air leak present, this was placed to waterseal this morning by CT surgery, his chest x-ray this morning showing left-sided chest tube in place, left apical pneumothorax persisted, and abnormal density in the suprahilar region that may be related to issues surgery, and there is volume loss in the left hemithorax. he is working with his incentive spirometer, he is achieving about 1.5 L on the today. His surgical biopsy results are still pending. Today's labs have been reviewed, BNP was done only, showing sodium of 134, potassium is 4.8, chloride is 97, B1 is 20 creatinine is 1.2 The patient is seen today 04/23/2021 in follow-up on the selective care unit. He is currently sitting up in bed. Awake and alert in no acute distress. He denies any worsening shortness of breath, cough or congestion. He is maintaining good O2 saturations in the 90s on room air. He's been hemodynamically stable. Chest x-ray continues to show a left-sided pneumothorax slightly larger compared to previous. Left chest tube remains in place. Pleur- evac as to waterseal. Intermittent air leak noted. White count 8.0. Hemoccult and 10.6. Sodium 134. Potassium 4.3. Creatinine 1.56. Continues to work well with the incentive spirometer. He is anxious to go home. Pathology results pending. Objective - Vital Signs Vital signs: Vital Signs Temp 98.8 F 04/23/21 07:46 Pulse 80 04/23/21 12:13 Resp 16 04/23/21 11:40 BP 116/63 04/23/21 11:40 Pulse Ox 94 L 04/23/21 11:40 Intake & Output 04/22/21 04/23/21 04/23/21 18:59 06:59 18:59 Intake Total 818 0 Output Total 110 560 Balance 708 -560 0 Weight 91.6 kg 91.6 kg Intake: Intake, IV Titration 200 Amount Magnesium Sulfate-D5w Pmx 200 1 gm In Dextrose/Water 1 100ml.bag @ 100 mls/hr IVPB Q1H [facility] Rx#: [id number] Oral 618 0 Output: Chest Tube Drainage 10 60 Chest Tube Left Upper 10 60 Anterior Chest Urine 100 500 Other: Voiding Method Indwelling Catheter Indwelling Catheter Indwelling Catheter - Exam GENERAL EXAM: Alert, very pleasant, 80-year-old male patient, on room air with a pulse ox of 94% comfortable in no apparent distress. HEAD: Normocephalic/atraumatic. EYES: Normal reaction of pupils, equal size. Conjunctiva pink, sclera white. NOSE: Clear with pink turbinates. THROAT: No erythema or exudates. NECK: No masses, no JVD, no thyroid enlargement, no adenopathy. CHEST: No chest wall deformity. Symmetrical expansion. left chest tube in place, currently to water seal, and there is intermittent air leak present left lateral chest incision clean dry and intact LUNGS: Equal air entry with no crackles, no rales, CVS: Regular rate and rhythm, normal S1 and S2, no gallops, no murmurs, no rubs ABDOMEN: Soft, nontender. No hepatosplenomegaly, normal bowel sounds, no guarding or rigidity. EXTREMITIES: No clubbing, no edema, no cyanosis, 2+ pulses and upper and lower extremities. MUSCULOSKELETAL: Muscle strength and tone normal. SPINE: No scoliosis or deformity SKIN: No rashes CENTRAL NERVOUS SYSTEM: No focal deficits, tone is normal in all 4 extremities. PSYCHIATRIC: Alert and oriented -3. Appropriate affect. Intact judgment and insight. 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 Patient continues to have a loculated pneumothorax in the left upper lobe. Today he has chest tube has been placed to waterseal. Output from the chest tube is minimal, today's chest x-ray shows persistent left apical pneumothorax, unchanged 2 History of hypertension 3 Patient is a former smoker, carries a 29-[id number] smoking history, in remission for the last 20 years 4 History of hypercholesterolemia 5 GERD/reflux 6 History of obstructive sleep apnea on CPAP 7 Osteoarthritis 8 Urinary retention with placement of Mejia catheter Plan: The patient was seen and evaluated by Dr. Gallegos Chest x-ray and labs reviewed Currently stable on on room air Continues to work well with the incentive spirometer Increase his activity as tolerated Continue to monitor pneumothorax We will continue to follow I, the cosigning physician, performed a history & physical examination of the patient. Lungs sounds are clear, diminished. Maintaining good O2 saturations in the 90s on room air. I discussed the assessment and plan of care with my nurse practitioner, Jeannette Shepard. I attest to the above note as dictated by her.
--- NOTE | 2021-04-23 14:41 | P.PN ---
Subjective Progress Note Date: 04/23/21 Principal diagnosis: Well differentiated neuroendocrine tumor of the left upper lobe. Previous medical history of previous tobacco dependence, obstructive sleep apnea on home CPAP, hypertension, hyperlipidemia, GERD, osteoarthritis POD #6 left thoracoscopy, robotic-assisted left upper lobectomy with mediastinal lymph node dissection Postoperative acute urinary retention, unexpected The patient's currently sitting up in a recliner in the cardiac stepdown unit in no acute distress, states pain is controlled on current medication regimen, denies shortness of breath. He has been ambulatory without difficulty. Left pleural chest tube remains to waterseal, intermittent air leak with expiration so present. Patient did clamp his own chest tube this morning and chest x-ray this morning was done with the tube clamped. Upon release of clamp patient does continue to have intermittent air leak with expiration and coughing. He has been using incentive spirometry and achieving 1500 mL. Mejia catheter remains in place per recommendations from urology. Patient is anxious to go home. No other new concerns Objective - Vital Signs Vital signs: Vital Signs Temp 98.8 F 04/23/21 07:46 Pulse 85 04/23/21 13:30 Resp 16 04/23/21 13:30 BP 116/63 04/23/21 11:40 Pulse Ox 94 L 04/23/21 11:40 Intake & Output 04/22/21 04/23/21 04/23/21 18:59 06:59 18:59 Intake Total 818 0 Output Total 110 560 Balance 708 -560 0 Weight 91.6 kg 91.6 kg Intake: Intake, IV Titration 200 Amount Magnesium Sulfate-D5w Pmx 200 1 gm In Dextrose/Water 1 100ml.bag @ 100 mls/hr IVPB Q1H [facility] Rx#: [id number] Oral 618 0 Output: Chest Tube Drainage 10 60 Chest Tube Left Upper 10 60 Anterior Chest Urine 100 500 Other: Voiding Method Indwelling Catheter Indwelling Catheter Indwelling Catheter - Exam CONSTITUTIONAL: Appears comfortable, cooperative, no acute distress RESPIRATORY: Lungs sounds diminished bilaterally. Respirations even, nonlabored. Currently on room air with oxygen saturation 94%. Able to achieve 1500 mL on incentive spirometry. Strong cough. CARDIOVASCULAR: S1, S2 present. Regular rate and rhythm, sinus rhythm on telemetry. Palpable peripheral pulses bilaterally. No edema present. No calf pain or tenderness noted. SCDs present. GASTROINTESTINAL: Abdomen soft, nontender, nondistended. Active bowel sounds present 4 quadrants. Tolerating diet. GENITOURINARY: Mejia present draining blood-tinged urine INTEGUMENTARY: Skin is warm and dry with evidence of good perfusion. Thoracic incision well approximated and covered with dry intact dressing. NEUROLOGIC: Cranial nerves II through XII intact MUSKULOSKELETAL: Able to move all extremities, strength equal bilaterally, gait normal PSYCHIATRIC: Alert and oriented to person place and time, appropriate affect, intact judgment and insight INVASIVE LINES AND TUBES: Left pleural chest tubes present to waterseal, intermittent air leak present with expiration and coughing, minimal drainage - Allied health notes Allied health notes reviewed: nursing - Labs CBC & Chem 7: 04/23/21 10:19 04/23/21 10:19 Labs: Abnormal Lab Results - Last 24 Hours (Table) 04/23/21 04/23/21 Range/Units 10:19 10:19 RBC 3.37 L (4.30-5.90) m/uL Hgb 10.6 L (13.0-17.5) gm/dL Hct 32.1 L (39.0-53.0) % Sodium 134 L (137-145) mmol/L BUN 31 H (9-20) mg/dL Creatinine 1.56 H (0.66-1.25) mg/dL - Imaging and Cardiology Chest x-ray: report reviewed, image reviewed Assessment and Plan Assessment: 1. 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 Continuous air leak, now intermittent with persistent left apical pneumothorax 3. Previous tobacco dependence 4. Obstructive sleep apnea on home CPAP 5. Hypertension 6. Hyperlipidemia 7. GERD 8. Osteoarthritis 9. Postoperative acute urinary retention requiring replacement of Mejia catheter Plan: 1. Continue chest tube to waterseal 2. Encourage incentive spirometry 10 times every hour while awake 3. Bronchodilators per pulmonology 4. Will monitor daily x-rays 5. Pain control with current medication regimen 6. Increase activity, ambulate as tolerated. Must be out of bed for all meals 7. GI/DVT prophylaxis 8. Continue Flomax. Urine culture negative. Urology recommendations noted and appreciated 9. Lung pathology pending 10. More recommendations to follow Time with Patient: Greater than 30
[2021-04-23] MEDS ORDERED: SODIUM CHLORIDE 0.9% 500 ML 500 ML IV ONE (15:46)
[2021-04-23] MEDS: TAMSULOSIN 0.4 MG CAP.ER.24H PO SCH (16:40)
[2021-04-23] MEDS: bisacodyL 5 MG TABLET.DR PO PRN (18:28)
[2021-04-23] MEDS: allopurinoL 100 MG TAB PO SCH (20:20)
[2021-04-23] MEDS: ATORVASTATIN 40 MG TAB PO SCH (20:20)
[2021-04-24] MEDS: PANTOPRAZOLE 40 MG TABLET PO SCH (06:39)
[2021-04-24] MEDS: IPRATROPIUM-ALBUTEROL 3 ML NEB IH SCH ×3 (08:06→17:01)
[2021-04-24] MEDS: ACETYLCYSTEINE 800 MG/4 ML VIAL INHALATION SCH ×3 (08:06→17:03)
[2021-04-24 08:29] VITALS: TEMP 98
[2021-04-24] MEDS: HEPARIN SODIUM,PORCINE/PF 5,000 UNIT/0.5 ML SYRINGE SQ SCH (08:36)
[2021-04-24] MEDS: atenoloL 50 MG TAB PO SCH (08:37)
[2021-04-24] MEDS: VIT A,C & E-LUTEIN-MINERALS 1 EACH TAB PO SCH (08:37)
[2021-04-24] MEDS: ASPIRIN 325 MG TAB PO SCH (08:37)
[2021-04-24] MEDS: CITALOPRAM HYDROBROMIDE 20 MG TAB PO SCH (08:37)
[2021-04-24] MEDS: amLODIPine 10 MG TAB PO SCH (08:37)
[2021-04-24] MEDS: MULTIVITAMINS, THERA 1 EACH TAB PO SCH (08:37)
[2021-04-24] MEDS: hydroCHLOROthiazide 12.5 MG CAP PO SCH (08:37)
[2021-04-24] MEDS: LOSARTAN 50 MG TAB PO SCH (08:37)
[2021-04-24] MEDS: CYCLOBENZAPRINE 10 MG TAB PO SCH (08:37)
[2021-04-24] MEDS: POTASSIUM CHLORIDE ER 20 MEQ TAB.ER PO SCH (08:38)
[2021-04-24 09:17] LABS: HCT 32.9 % (39.0-53.0); HGB 10.7 gm/dL (13.0-17.5); MCH 31.2 pg (25.0-35.0); MCHC 32.7 g/dL (31.0-37.0); MCV 95.4 fL (80.0-100.0); Mean Platelet Volume 7.3; Platelet Count 363 k/uL (150-450); RBC 3.45 m/uL (4.30-5.90); RDW 13.7 % (11.5-15.5); WBC 7.9 k/uL (3.8-10.6)
[2021-04-24 09:42] LABS: Calcium 9.2 mg/dL (8.4-10.2); Potassium 4.2 mmol/L (3.5-5.1)
--- NOTE | 2021-04-24 10:28 | XR ---
EXAMINATION TYPE: XR chest 2V DATE OF EXAM: 04/24/2021 COMPARISON: NONE HISTORY: Postop left upper lobectomy, chest tube TECHNIQUE: Single frontal view of the chest is obtained. FINDINGS: There are overlying leads. Left-sided chest tube remains in place. Left apical pneumothora x is 4.7 cm craniocaudal. This is likely stable. There is mediastinal shift to the left cardiomediast inal silhouette is stable.. Atherosclerotic aorta. Abnormal density in the suprahilar region may be r elated to patient's surgery. Right lung is hyperaerated and relatively clear. There is volume loss in the left hemithorax. Osteopenia and degenerative changes of the thoracic spine with probable chronic compression fracture of the lower thoracic vertebral body. IMPRESSION: 1. Left-sided pneumothorax is similar to prior exam. Left chest tube is again visualized. Cardiomedia stinal shift to the left is stable
[2021-04-24 11:52] VITALS: BP 126/64; RESP 18
--- NOTE | 2021-04-24 13:39 | P.PN ---
Subjective Progress Note Date: 04/24/21 Principal diagnosis: Left upper lobe neuroendocrine tumor, status post left thoracoscopy and left upper lobectomy 80-year-old white male patient with a past medical history hypertension, hyperlipidemia, aortic valve stenosis, obstructive sleep apnea, BPH, anxiety, previous history of malignant melanoma, who was referred to Dr. Ramirez for evaluation of a left mid lung nodule/tumor. Patient was recently in the hospital for dehydration and weakness. Computed tomography scan of the chest showed a lesion in the left mid lung measuring 2.2 cm. Patient had outpatient PET scan that showed a positive uptake in this lesion but no evidence of metastatic disease. Patient carries a [id number] smoking history. He quit smoking at the age of 53. 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 He had a PFT in the office that showed FEV1 of 2.64 L or 82% of predicted, an FVC of 3.78 L or 84% of predicted, and MVV 64% of predicted. Patient was referred to Dr. Whiting for excisional surgery of the left upper lobe. Today on 04/17/2021 patient had left thoracoscopy robotic-assisted left upper lobectomy with mediastinal lymph node dissection. He seen in the postoperative period in the recovery room, he is resting comfortably on the gurney, he is still a bit drowsy, but he is answering questions appropriately, he is currently on a simple face mask, and only 2 L of oxygen, his pulse ox is 98%, he is breathing comfortably, he is in sinus mechanism, hemodynamically he stable, left-sided chest tube is in place to wall suction and there is a continuous air leak, postoperative chest x-ray has been reviewed showing new left upper lung pleural air collection, no mediastinal shift, left-sided chest tube in place, left central atelectatic change, back on the low lung volumes and chronic emphysematous and pulmonary fibrotic changes. On today's evaluation of 04/18/2021 the patient is postop day #1. He underwent a left upper lobe resection. The patient continues to have a loculated pneumothorax in the left upper lobe on today's chest x-ray. Chest tube is in a good location with the left hemithorax and there is continuous air leak and wall suction his to being applied. He is using incentive spirometer. His bowling approximately thousand. His pain is under adequate control. No worsening shortness of breath and no subcutaneous emphysema. No chest pain. No pleurisy. No hemoptysis. No other significant events overnight. His potassium came down at 2.7 and is being replaced. Creatinine is at 1.1. Sodium is 137. The patient has a white cell count of 7.8 patient medication of been all resumed. On a separate note, the patient has not urinated since yesterday. The Mejia catheter removed. We'll proceed with a bladder scan. 04/19/2021, the patient is on room air oxygen. Chest x-ray showing some dimin ution of the left-sided pneumothorax and it is obviously smaller in size. The chest tube is in good location. There is positive air leak. Clinically doing well. No specific complaints. He is currently pulse oxing 91% room air oxygen. Hemodynamically stable. He has adequate pain control. Using incentive spirometer. Hemoglobin is at 11.2. Electrolytes are normal with a normal sodium of 135, potassium is 3.3 and his been replaced, is having urinary retention and a Mejia catheter was reinserted. He was given Flomax. 04/20/2021, the patient remains on room air oxygen. His interval the my notion and further since improvement in left-sided pneumothorax. There is also positive air leak. Using incentive spirometer. No chest pain. Mejia catheter in place. The patient was seen by urology. Pain is under good control. No other significant events overnight. He is calm and comfortable and he is also hemodynamically stable. No other significant issues otherwise for now. Final pathology from the left upper lobe resection still pending. 2020, still having some limited air leak and the patient also has a left- sided pneumothorax which is still unchanged. Nevertheless, the chest tube is in a good location is using incentive spirometer and he is feeling good and he is tolerating diet and he has no other major issues for now. The active issue is his ongoing air leak and the persistent pneumothorax that occurred following his left upper lobe resection. The patient is postop day #4. On 04/22/2001 patient seen in follow-up on selective care unit, he is resting comfortably in bed, currently on room air, pulse ox is 94%, breathing comfortably, his cell left-sided chest tube remains in place, and there is still intermittent air leak present, this was placed to waterseal this morning by CT surgery, his chest x-ray this morning showing left-sided chest tube in place, left apical pneumothorax persisted, and abnormal density in the suprahilar region that may be related to issues surgery, and there is volume loss in the left hemithorax. he is working with his incentive spirometer, he is achieving about 1.5 L on the today. His surgical biopsy results are still pending. Today's labs have been reviewed, BNP was done only, showing sodium of 134, potassium is 4.8, chloride is 97, B1 is 20 creatinine is 1.2 On 04 24 2021 patient is seen in follow-up on selective care unit, his left-sided chest tube was discontinued this morning, follow-up chest x-ray is pending. This morning's chest x-ray showed left-sided pneumothorax, unchanged from prior exam, cardiomediastinal shift to the left side which is stable from yesterday's exam. She is breathing comfortably, pulse ox is 95%, afebrile, hemodynamically he has been stable. His surgical biopsies are still pending. Patient is being considered for discharge home later on today, if the follow-up chest x-ray is satisfactory Objective - Vital Signs Vital signs: Vital Signs Temp 98 F 04/24/21 08:23 Pulse 86 04/24/21 11:30 Resp 18 04/24/21 11:30 BP 126/64 04/24/21 11:30 Pulse Ox 95 04/24/21 11:30 Intake & Output 04/23/21 04/24/21 04/24/21 18:59 06:59 18:59 Intake Total 480 240 Output Total 20 736 Balance 460 -736 240 Weight 91.6 kg 91.4 kg Intake: Oral 480 240 Output: Chest Tube Drainage 20 126 Chest Tube Left Upper 20 126 Anterior Chest Urine 610 Other: Voiding Method Indwelling Catheter Indwelling Catheter Indwelling Catheter # Voids 2 # Bowel Movements 2 - Exam GENERAL EXAM: Alert, very pleasant, 80-year-old white male, on room air, with a pulse ox of 98% comfortable in no apparent distress. HEAD: Normocephalic/atraumatic. EYES: Normal reaction of pupils, equal size. Conjunctiva pink, sclera white. NOSE: Clear with pink turbinates. THROAT: No erythema or exudates. NECK: No masses, no JVD, no thyroid enlargement, no adenopathy. CHEST: No chest wall deformity. Symmetrical expansion. left chest tube in place, currently to water seal, and there is intermittent air leak present left lateral chest incision clean dry and intact LUNGS: Equal air entry with no crackles, no rales, CVS: Regular rate and rhythm, normal S1 and S2, no gallops, no murmurs, no rubs ABDOMEN: Soft, nontender. No hepatosplenomegaly, normal bowel sounds, no guarding or rigidity. EXTREMITIES: No clubbing, no edema, no cyanosis, 2+ pulses and upper and lower extremities. MUSCULOSKELETAL: Muscle strength and tone normal. SPINE: No scoliosis or deformity SKIN: No rashes CENTRAL NERVOUS SYSTEM: Alert and oriented -3. No focal deficits, tone is normal in all 4 extremities. PSYCHIATRIC: Alert and oriented -3. Appropriate affect. Intact judgment and insight. - Labs CBC & Chem 7: 04/24/21 08:18 04/24/21 08:18 Labs: Abnormal Lab Results - Last 24 Hours (Table) 04/24/21 04/24/21 Range/Units 08:18 08:18 RBC 3.45 L (4.30-5.90) m/uL Hgb 10.7 L (13.0-17.5) gm/dL Hct 32.9 L (39.0-53.0) % Sodium 134 L (137-145) mmol/L BUN 28 H (9-20) mg/dL Creatinine 1.48 H (0.66-1.25) mg/dL Glucose 101 H (74-99) mg/dL Assessment and Plan Plan: Assessment: #1. 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 Patient continues to have a loculated pneumothorax in the left upper lobe. Today he has chest tube has been placed to waterseal. Output from the chest tube is minimal, today's chest x-ray shows persistent left apical pneumothorax, unchanged #2. History of hypertension #3. Patient is a former smoker, carries a [id number]-ktvl smoking history, in remission for the last 20 years #4. History of hypercholesterolemia #5. GERD/reflux #6. History of obstructive sleep apnea on CPAP #7. Osteoarthritis #8. Urinary retention with placement of Mejia catheter Plan: Today's chest x-ray showing persistence of left apical pneumothorax which is unchanged Hemodynamically stable, not requiring any oxygen Surgical biopsies are pending Left sided chest tube has been removed Follow-up chest x-ray is pending Incentive spirometer to the bedside Continue breathing treatments Possible discharge later on today, follow-up chest x-ray does not show worsening left pneumothorax I performed a history & physical examination of the patient and discussed their management with my nurse practitioner, Jacquie Srena. I reviewed the nurse practitioner's note and agree with the documented findings and plan of care. Lung sounds are positive for diminished breath sounds. The findings and the impression was discussed with the patient. I attest to the documentation by the nurse practitioner. Time with Patient: Less than 30
--- NOTE | 2021-04-24 14:46 | XR ---
EXAMINATION TYPE: XR chest 2V DATE OF EXAM: 04/24/2021 COMPARISON: NONE HISTORY: Postop left upper lobectomy. Chest tube has been removed. TECHNIQUE: Frontal and lateral views of the chest are obtained. FINDINGS: There is an increased left sided pneumothorax measuring up to 6.8 cm. Left-sided chest tube has been removed. Multiple overlying leads. Mediastinal shift to the left is stable. Abnormal left s uprahilar density is again seen. There is elevation of the left hemidiaphragm, stable. The right lung is clear. Heart size is enlarged. Atherosclerotic aorta. Degenerative changes of the thoracic spine with osteopenia and compression fracture of the lower thoracic vertebral body. IMPRESSION: 1. Increasing left pneumothorax. Mediastinal shift to the left is stable. The left-sided chest tube h as been removed. 2. Cardiomegaly. Left suprahilar airspace density is stable.
--- NOTE | 2021-04-24 15:33 | P.DS ---
Providers Date of admission: 04/17/21 05:49 Expected date of discharge: 04/24/21 Attending physician: Francois Whiting Consults: 04/17/21 13:59 Consult Physician Routine Consulting Provider: Reed Jain Consult Reason/Comments: post ECTOR lobectomy Do you want consulting provider notified?: Yes 04/19/21 08:48 Consult Physician Routine Consulting Provider: Jan Garcia Consult Reason/Comments: urinary retention Do you want consulting provider notified?: Yes Primary care physician: Iker Lin MD Hospital Course: FINAL DIAGNOSIS: .1. 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 Continuous air leak, now intermittent with persistent left apical pneumothorax 3. Previous tobacco dependence 4. Obstructive sleep apnea on home CPAP 5. Hypertension 6. Hyperlipidemia 7. GERD 8. Osteoarthritis 9. Postoperative acute urinary retention requiring replacement of Mejia catheter PRINCIPAL PROCEDURE: 1. left thoracoscopy, robotic-assisted left upper lobectomy with mediastinal lymph node dissection. HISTORY OF PRESENT ILLNESS: This is an 80-year-old gentleman who follows with Dr. Danny Ramirez from pulmonary medicine. He is a past medical history significant for previous tobacco dependence, obstructive sleep apnea with home CPAP use, hypertension, hyperlipidemia, gastroesophageal reflux disease and osteoarthritis. Recently, the patient has been treated for dehydration in the emergency department here at [facility]. He was given IV hydration and improved. Subsequently a chest x-ray was completed which demonstrated a fullness in the left hilar region. For follow-up a computed tomography scan of his chest was obtained which demonstrated a 2.5 cm well circumscribed tumor in the left upper lobe. For further evaluation of the tumor to his left upper lobe Dr. Esquivel performed a bronchoscopy and needle biopsy which showed well-differentiated neuroendocrine carcinoma. For further evaluation the patient was referred to Dr. Francois Whiting from cardiothoracic surgery for further evaluation and treatment recommendations including lung resection. A PET scan was completed which demonstrated uptake in the tumor with no evidence of metastasis. He also underwent preoperative pulmonary function testing which demonstrated an FEV1 of 2.64 which is 82% of predicted value and a DLCO of 22.7 for which is 62% of predicted value. Dr. Whiting met with the patient, the risks and benefits of surgery were discussed and knowing and understanding the risks of surgery the patient wished to proceed with the surgical option. HOSPITAL COURSE: The patient was admitted to the hospital and after obtaining consent was taken to the preoperative area, prepared in the usual fashion and subsequently taken to the operating room where Dr. Francois Whiting performed a robotic-assisted thoracoscopic left upper lobectomy with mediastinal lymph node dissection. Upon completion of the surgery the patient was extubated and taken to the recovery room where he was recovered and monitored hemodynamically. He was eventually admitted to the third floor cardiac stepdown unit for further monitoring. There was a intermittent persistent airleak to his chest tube which was placed to water seal. Today on evaluation there was no air leak present. He continued to recover, although experiences some urinary retention in the postoperative phase requiring replacement of Mejia catheter and evaluation by urology. Subsequently his left pleural chest tube was discontinued on postoperative day #7. A repeat chest x-ray showed improvement in his left pneumothorax. His oxygen was titrated down, he was tolerating an oral diet, his pain was well-controlled and he was ready to be discharged home on postoperative day #7 with [facility] health care. He has received written and verbal instructions regarding his medications, activity restrictions, signs and symptoms requiring physician notification and his follow-up appointments. COMPLICATIONS: His postoperative period was complicated by some postoperative acute urinary retention requiring replacement of his Mejia catheter which was treated accordingly. CONSULTATIONS: 1. Dr. Jain from pulmonary medicine 2. Dr. Garcia from urology We will hold his hydrochlorothiazide and potassium replacement until his BUN and creatinine improve. DISCHARGE INSTRUCTIONS: 1. No driving for 2 weeks, or until physician gives their ok. 2. No lifting, pushing, or pulling more than 10 pounds for 2 weeks. The physician will advise of any restriction changes. 3. Continue pain control per as needed orders. Alternate acetaminophen (Tylenol) pain. 4. Continue with incentive spirometry and splinting until otherwise directed by the physician. 5. Leave chest tube dressing for 48 hours. After that, remove all dressings an d shower daily. 6. Routine incision care. No powders, lotions, ointments on incisions. 7. Please call surgeon/[employer]ATING OPERATOR for temp greater than 101 F or purulent drainage from incisions. 8. Smoking cessation counseling and program information provided. 9. The patient has been instructed to obtain a chest x-ray prior to his follow- up visit with Dr. Francois Whiting on 05/01/2021. 10. Okay to draw a comprehensive metabolic panel on 04/28/2021. Please fax results [phone]. For any questions or concerns please call nurse practitioners Shanique at [phone] or Tony at [phone] Plan - Discharge Summary Discharge Rx Participant: No New Discharge Prescriptions: New Tamsulosin [Flomax] 0.4 mg PO DAILY #30 cap Losartan [Cozaar] 100 mg PO DAILY #30 tab Tamsulosin [Flomax] 0.4 mg PO PC-SUPPER #30 cap.er.24h Acetaminophen Tab [Tylenol] 650 mg PO Q4HR PRN tab PRN Reason: Fever And/ Or Pain Continue amLODIPine BESYLATE 10 mg PO QAM Losartan/Hydrochlorothiazide [Losartan-Hctz 100-12.5 mg Tab] 1 tab PO QAM Citalopram Hydrobromide [Citalopram HBr] 20 mg PO QAM [place]-3 Fatty Acids/Fish Oil [Fish Oil 1,000 mg Softgel] 1 cap PO DAILY Cyclobenzaprine [Flexeril] 10 mg PO QAM Omeprazole 20 mg PO QAM Vit C/E/Zn/Coppr/Lutein/Zeaxan [Preservision Areds 2 Softgel] 1 each PO BID Allopurinol [Zyloprim] 100 mg PO HS Atenolol [Tenormin] 50 mg PO QAM Rosuvastatin [Crestor] 20 mg PO HS Aspirin 325 mg PO DAILY Multivitamins, Thera [Multivitamin (formulary)] 1 tab PO DAILY guanFACINE HCL [guanFACINE HCL ER] 2 mg PO HS Discontinued Potassium Chloride 10 meq PO QAM Discharge Medication List Allopurinol [Zyloprim] 100 mg PO HS 02/25/21 [History] Aspirin 325 mg PO DAILY 02/25/21 [History] Atenolol [Tenormin] 50 mg PO QAM 02/25/21 [History] Losartan/Hydrochlorothiazide [Losartan-Hctz 100-12.5 mg Tab] 1 tab PO QAM 02/25/21 [History] Multivitamins, Thera [Multivitamin (formulary)] 1 tab PO DAILY 02/25/21 [History] Omeprazole 20 mg PO QAM 02/25/21 [History] Rosuvastatin [Crestor] 20 mg PO HS 02/25/21 [History] Vit C/E/Zn/Coppr/Lutein/Zeaxan [Preservision Areds 2 Softgel] 1 each PO BID 02/25/21 [History] amLODIPine BESYLATE 10 mg PO QAM 02/25/21 [History] Citalopram Hydrobromide [Citalopram HBr] 20 mg PO QAM 04/11/21 [History] Cyclobenzaprine [Flexeril] 10 mg PO QAM 04/11/21 [History] [place]-3 Fatty Acids/Fish Oil [Fish Oil 1,000 mg Softgel] 1 cap PO DAILY 04/11/21 [History] guanFACINE HCL [guanFACINE HCL ER] 2 mg PO HS 04/11/21 [History] Tamsulosin [Flomax] 0.4 mg PO DAILY #30 cap 04/19/21 [Rx] Acetaminophen Tab [Tylenol] 650 mg PO Q4HR PRN tab 04/24/21 [Rx] Losartan [Cozaar] 100 mg PO DAILY #30 tab 04/24/21 [Rx] Tamsulosin [Flomax] 0.4 mg PO PC-SUPPER #30 cap.er.24h 04/24/21 [Rx] Follow up Appointment(s)/Referral(s): [facility] [NON-STAFF] - Jan Garcia MD [STAFF PHYSICIAN] - 04/29/21 2:00 pm Francois Whiting MD [STAFF PHYSICIAN] - 05/01/21 1:45 pm Danny Ramirez DO [Doctor of Osteopathic Medicine] - 05/16/21 9:45 am Ambulatory/Diagnostic Orders: XR chest 2V [RAD.AMB] Location: None Selected XR chest 2V [RAD.AMB] Time Frame: 05/01/21, Facility: [facility], Location: [facility] Activity/Diet/Wound Care/Special Instructions: Leave IDC in place for 1 week, will DC with IDC in place and flomax and follow up in the office DISCHARGE INSTRUCTIONS: 1. No driving for 2 weeks, or until physician gives their ok. 2. No lifting, pushing, or pulling more than 10 pounds for 2 weeks. The physician will advise of any restriction changes. 3. Continue pain control per as needed orders. Alternate acetaminophen (Tylenol) for pain. 4. Continue with incentive spirometry and splinting until otherwise directed by the physician. 5. Leave chest tube dressing for 48 hours. May remove the left chest dressing on 04/26/2021. After that, remove all dressings and shower daily. 6. Routine incision care. No powders, lotions, ointments on incisions. 7. Please call surgeon/[employer] OPERATOR for temp greater than 101 F or purulent drainage from incisions. 8. Smoking cessation counseling and program information provided. 9. Please obtain a chest x-ray prior to your follow-up visit with Dr. Francois Whiting on , 05/01/2021. For any questions or concerns please call nurse practitioners Shanique at [phone] or Tony at [phone] Discharge Disposition: HOME SELF-CARE
[2021-04-24 17:06] VITALS: PULSE 80
--- NOTE | 2021-07-11 13:26 | CDI ---
"Air leak" is documented in pulm PN on 04/17 and 04/18 and patient had and L thoracoscopy, robotic-assisted ECTOR lobectomy w/ mediastinal LND on 04/17. Additional clarification is requested regarding the relationship, if any, that exists between the diagnosis and the procedure. Patients Admitting Diagnosis: well-differentiated neuroendocrine tumor of the ECTOR Post-Operative Diagnosis: well-differentiated neuroendocrine tumor of the ECTOR Procedure performed 04/17: L thoracoscopy, robotic-assisted ECTOR lobectomy w/ mediastinal LND History/Risk Factors: prev tobacco dependence, TALHA on CPAP Clinical Indicators: Pulm consult on 04/17 noted a "continuous air leak" and the chest tube was attached to wall suction, CTS PN 04/19 noted the air leak was still present with expiration, 04/19 pulm PN noted an intermittent air leak and on 04/22 the chest tube was placed to waterseal Treatment: chest tube to wall suction, pt instructed to use IS Consults: Pulm, IM What relationship, if any, exists between the diagnosis of air leak and the procedure: [ ] Air leak is a complication of surgical procedure [ x ] Air leak] is an expected outcome of the surgical procedure [ ] Air leak is related to patients co-morbid condition(s) of neuroendocrine tumor & not a complication of the procedure [ ] Other please specify [ ] Unable to determine (Template Last Revised: January 2021) MTDD
== END 2021-04-24 17:56 | disposition home health service (06) | DRG 829 ==
LOC: 2ORMAIN 05:49 → 3SCARD 13:53
PROVIDERS: ADMIT Thoracic Surgery (Cardiothoracic Vascular Surgery); ATTEND Thoracic Surgery (Cardiothoracic Vascular Surgery)
PROC: 0BTG4ZZ Resection of Left Upper Lung Lobe, Percutaneous Endoscopic Approach (ICD-10-PCS; 2021-04-17)
PROC: 8E0W4CZ Robotic Assisted Procedure of Trunk Region, Percutaneous Endoscopic Approach (ICD-10-PCS; 2021-04-17)
PROC: 07B73ZX Excision of Thorax Lymphatic, Percutaneous Approach, Diagnostic (ICD-10-PCS; principal; 2021-04-17 07:30)
DX: C7A.8 Other malignant neuroendocrine tumors (principal); J93.82 Other air leak; E78.5 Hyperlipidemia, unspecified; I10 Essential (primary) hypertension; I35.0 Nonrheumatic aortic (valve) stenosis; N40.0 Benign prostatic hyperplasia without lower urinary tract symptoms; Z85.820 Personal history of malignant melanoma of skin; F41.9 Anxiety disorder, unspecified; G47.33 Obstructive sleep apnea (adult) (pediatric); Z20.822 Contact with and (suspected) exposure to COVID-19; R91.1 Solitary pulmonary nodule; E86.0 Dehydration; Z87.891 Personal history of nicotine dependence; R40.0 Somnolence; K21.9 Gastro-esophageal reflux disease without esophagitis; M10.9 Gout, unspecified; Z79.82 Long term (current) use of aspirin; M19.90 Unspecified osteoarthritis, unspecified site; E78.00 Pure hypercholesterolemia, unspecified; R33.8 Other retention of urine; N40.1 Benign prostatic hyperplasia with lower urinary tract symptoms; K59.00 Constipation, unspecified
CPT/HCPCS: 36415; 64999; 71045; 71046; 76942; 80048; 81001; 83735; 85025; 85027; 86850; 86900; 86901; 87086; 87635; 88305; 88309; 88312; 88313; 88341; 88342; 94640; 94760

== ENCOUNTER → 2021-05-01 | Outpatient (CLI) | payer MEDICARE ==
--- NOTE | 2021-05-01 17:15 | XR ---
EXAMINATION TYPE: XR chest 2V DATE OF EXAM: 05/01/2021 COMPARISON: 04/24/2021 INDICATION: Postop left upper lobectomy TECHNIQUE: Frontal and lateral views of the chest are obtained. FINDINGS: The heart size is upper limits of normal. The pulmonary vasculature is normal. Mild infiltrate may be at the left base. There is a density at the level of the aortic arch which may be somewhat smaller in comparison. There is a left apical pneumothorax post left upper lobectomy. This is currently measuring 5.4 cm, pr evious measurement 6.9 cm.. IMPRESSION: 1. Small left apical pneumothorax post lobectomy. 2. Left suprahilar density appears stable. 3. Small left lower lobe infiltrate. Consider continued follow-up.
== END | disposition home or self-care (01) ==
LOC: RADXRMAIN 11:49
PROVIDERS: ATTEND Nurse Practitioner Family
DX: Z48.813 Encounter for surgical aftercare following surgery on the respiratory system (principal); J95.811 Postprocedural pneumothorax; J98.4 Other disorders of lung; R91.8 Other nonspecific abnormal finding of lung field
CPT/HCPCS: 71046

== ENCOUNTER → 2021-08-20 | Outpatient (CLI) | payer MEDICARE ==
[2021-08-22 18:58] LABS: African American GFR (CKD) 88.9 (60.0-200.0); Albumin 4.5 g/dL (3.8-4.9); Albumin/Globulin Ratio 2.12 (1.60-3.17); Anion Gap 11.9 mmol/L (4.00-12.00); BUN/Creat Ratio 21.08 Ratio (12.00-20.00); Blood Urea Nitrogen 19.5 mg/dL (9.0-27.0); Calcium 9.4 mg/dL (8.7-10.3); Carbon Dioxide 24.3 mmol/L (21.6-31.8); Globulin 2.1 g/dL (1.6-3.3); Non-African American GFR(CKD) 76.7 (60.0-200.0); Potassium 4.3 mmol/L (3.5-5.5); Total Bilirubin 0.3 mg/dL (0.30-1.20); Total Protein 6.6 g/dL (6.2-8.2)
== END | disposition home or self-care (01) ==
LOC: LABWHC1 12:45
PROVIDERS: ATTEND Internal Medicine Endocrinology, Diabetes & Metabolism
DX: E27.40 Unspecified adrenocortical insufficiency (principal)
CPT/HCPCS: 36415; 80053; 82024; 82088; 82533; 84244

== ENCOUNTER → 2022-07-30 | Outpatient (CLI) | payer MEDICARE ==
[2022-07-30 23:28] LABS: HCT 37.3 % (39.6-50.0); HGB 12.1 g/dL (13.0-17.0); MCHC 32.4 g/dL (32.0-37.0); MCV 95.6 fL (80.0-97.0); Mean Platelet Volume 10.1 fL (9.5-12.2); NRBC Per 100 WBC 0 /100 WBCS (0.0-0.0); Platelet Count 236 X 10*3/uL (140-440); RDW 13.5 % (11.5-14.5); WBC 4.44 X 10*3/uL (4.50-10.00)
[2022-07-31 01:01] LABS: African American GFR (CKD) 42.3 (60.0-200.0); Albumin 4.4 g/dL (3.8-4.9); Albumin/Globulin Ratio 2.22 (1.60-3.17); Anion Gap 11.9 mmol/L (10.00-18.00); Blood Urea Nitrogen 27.2 mg/dL (9.0-27.0); Calcium 9.5 mg/dL (8.7-10.3); Carbon Dioxide 25.7 mmol/L (20.0-27.5); Follicle Stimulating Hormone 3.7 mIU/mL; Luteinizing Hormone 5.8 mIU/mL; Non-African American GFR(CKD) 36.5 (60.0-200.0); Potassium 4.4 mmol/L (3.5-5.5); T4, Free (Free Thyroxine) 1.21 ng/dL (0.800-1.800); Total Bilirubin 0.4 mg/dL (0.30-1.20); Total Protein 6.4 g/dL (6.2-8.2)
== END | disposition home or self-care (01) ==
LOC: LABWHC1 15:05
PROVIDERS: ATTEND Internal Medicine Endocrinology, Diabetes & Metabolism
DX: D35.00 Benign neoplasm of unspecified adrenal gland (principal)
CPT/HCPCS: 36415; 80053; 83001; 83002; 84403; 84439; 84480; 85027